=== PATIENT | female | born 1955 | race Caucasian/White ===

== ENCOUNTER → 2019-10-24 11:00 | Outpatient (BNVA) | payer BC, SELFPAY | PROVIDERS: Family Provider General Practice; Referring Provider Family Medicine; Visit Provider Obstetrics & Gynecology | DX: R87.615 Unsatisfactory cytologic smear of cervix (principal); N39.41 Urge incontinence | CPT/HCPCS: 87086 ==

== ENCOUNTER 2020-02-22 06:24 | Day surgery (SDC) | payer BC, SELFPAY ==
[2020-02-21 16:12] VITALS: BMI 51.7
--- NOTE | 2020-02-22 06:42 | W.PM.OPSUD ---
Surgery/Procedure H&P Update DATE OF PROCEDURE: February 22, 2020 DATE H&P PERFORMED: 02/07/20 H&P UPDATE INFORMATION: I have reviewed H&P completed within last 30 days, I have examined patient prior to procedure and No changes to prior documentation CHANGES TO PREVIOUS DOCUMENTATION: The same PREOP DIAGNOSIS: Peptic ulcer disease and screening colonoscopy PLANNED PROCEDURE: Operation Date: 02/22/20 08:05 Proposed Procedures p EGD 82167 Z87.11(Not Applicable) - Nash Carlos MD s Colonoscopy 02654 Z12.11(Not Applicable) - Nash Carlos MD
[2020-02-22] MEDS: sodium chloride 0.9% 1,000 ML 30 ML IV (06:45)
[2020-02-22 06:47] VITALS: BP 149/82; PULSE 65; RESP 18; TEMP 36.1; O2SAT 97
--- NOTE | 2020-02-22 07:20 | ANES.PREANE2 ---
Pre-Anesthetic Assessment Pre-Anesthetic Assessment: Height/Weight: Height 1.52 m Weight 120.202 kg Temp Pulse Resp BP Pulse Ox 97 F L 65 18 149/82 97 02/22/20 06:47 02/22/20 06:47 02/22/20 06:47 02/22/20 06:47 02/22/20 06:47 Preop Diagnosis: Peptic ulcer disease and screening colonoscopy Proposed Procedure: Operation Date: 02/22/20 08:05 Proposed Procedures p EGD 67393 Z87.11(Not Applicable) - Nash Carlos MD s Colonoscopy 80016 Z12.11(Not Applicable) - Nash Carlos MD Familial anesthetic complications: None Was Beta Natalie taken within 24 hours: N/A Last intake: Intake Last Liquid Date 02/21/20 Last Liquid Time 14:00 Last Solid Date 02/20/20 Last Solid Time 18:00 Social: Social History: No alcohol and No tobacco Exam: Pre-Anes Outpt Exam: alert, oriented x 3, clear to auscultation bilaterally and regular rate & rhythm Airway: Cervical ROM: WNL MP: 4 Dentition: Full Additional comments: pulled teeeth Pulmonary: Pulmonary: None reported CV/HEM: CV/HEM: HTN : : None reported Hepatic: Hepatic: None reported GI: GI: GERD and PUD Metabolic: Metabolic: Morbid obesity Musc/skel: Musc/skel: None reported Neuropsych: Neuropsych: None reported Anesthetic Plan: ASA status: 2 Anesthesia: MAC Risk of > 500 ml blood loss (7ml/kg in children): No PFSH Anesthesia PFSH: Medical History Gastric ulcer Hypertension Obesity Surgical History History of cholecystectomy History of esophagogastroduodenoscopy (EGD) History of tubal ligation (~1988) [facility]. Performed by Dr. Ellis Family History Mother Hypertension Diabetes Hyperlipidemia Bladder cancer Sister Hypertension Hyperlipidemia Thyroid condition Breast cancer, Onset Age: 50 Unknown No problems noted. Denies family history of Anesthesia complication Bleeding disorder Social History Smoking and tobacco status: never smoked Alcohol intake: never Lives independently: Yes Household members: spouse Current occupational status: retired History of recent travel: No Additional social history: Poorly balanced diet Data Anesthesia Cardiac Studies: No Data to Display
[2020-02-22 08:34] VITALS: BP 92/51; PULSE 65; RESP 12; TEMP 32.2; O2SAT 96
--- NOTE | 2020-02-22 08:39 | ANE.PACU2 ---
Inpatient post-anesthesia follow up: Airway intact: Yes Vital signs: Temperature 97 F Pulse Rate 65 Respiratory Rate 18 Blood Pressure 149/82 Pulse Oximetry 97 Oxygen Delivery Me thod Room Air Oxygen Flow Rate Fraction of Inspir ed Oxygen Hydration adequate: Yes Nausea and vomiting: No Pain level: 1 Mental status: Baseline
[2020-02-22 08:45] VITALS: BP 87/55; PULSE 52; RESP 16; O2SAT 97
[2020-02-22 09:01] VITALS: BP 98/58; PULSE 56; RESP 16; O2SAT 96
[2020-02-23 07:10] LABS: H. Pylori / CLO Test Negative
== END 2020-02-22 09:15 | disposition home or self-care (01) ==
PROVIDERS: PCP Family Medicine; Visit Provider Surgery
PROC: 0DJ08ZZ Inspection of Upper Intestinal Tract, Via Natural or Artificial Opening Endoscopic (ICD-10-PCS; CPT 43235; principal; 2020-02-22 08:00)
PROC: 0DJD8ZZ Inspection of Lower Intestinal Tract, Via Natural or Artificial Opening Endoscopic (ICD-10-PCS; CPT 45378; 2020-02-22 08:00)
DX: Z12.11 Encounter for screening for malignant neoplasm of colon (principal); Z87.11 Personal history of peptic ulcer disease; D12.8 Benign neoplasm of rectum; K31.89 Other diseases of stomach and duodenum; K29.70 Gastritis, unspecified, without bleeding; I10 Essential (primary) hypertension; K21.9 Gastro-esophageal reflux disease without esophagitis; E66.01 Morbid (severe) obesity due to excess calories; Z68.43 Body mass index [BMI] 50.0-59.9, adult; Z82.49 Family history of ischemic heart disease and other diseases of the circulatory system; Z83.3 Family history of diabetes mellitus
CPT/HCPCS: 43239; 45385; 12345; 45380; 87077; 88305; J2704; J7030

== ENCOUNTER → 2021-12-11 14:10 | Outpatient (BNVA) | payer MEDICARE, SELFPAY | PROVIDERS: PCP Family Medicine; Visit Provider Surgery | DX: E66.01 Morbid (severe) obesity due to excess calories (principal); Z20.822 Contact with and (suspected) exposure to COVID-19 | CPT/HCPCS: 87635 ==

== ENCOUNTER 2021-12-17 10:26 | Inpatient (IN) | payer MEDICARE, SELFPAY ==
[2021-12-13 10:46] VITALS: BMI 47.2
[2021-12-13 11:48] LABS: Basophils # 0.1 10^3/uL (0.0-0.1); Basophils % 0.7 %; Eosinophils # 0.1 10^3/uL (0.0-0.8); Hematocrit 45.2 % (37.0-47.0); Hemoglobin 15.1 g/dL (11.5-15.3); Lymphocytes # 2.3 10^3/uL (0.8-4.8); Lymphocytes % 28.8 %; Mean Corpuscular HGB Conc 33.4 g/dL (30.0-36.0); Mean Corpuscular Hemoglobin 30.8 pg (28.0-34.0); Mean Corpuscular Volume 92.1 fl (81-99); Mean Platelet Volume 11.9 fL (7.4-10.4); Monocytes # 0.6 10^3/uL (0.2-0.9); Monocytes % 7.8 %; Neutrophils # 4.91 10^3/uL (1.8-7.7); Neutrophils % 61.2 %; Nucleated Red Blood Cells % 0 %; Platelet Count 268 10^3/cmm (130-400); Red Blood Count 4.91 10^6/uL (4.1-5.3); Red Cell Distribution Width 13.2 % (12.1-15.1)
[2021-12-13 12:11] LABS: Alanine Aminotransferase 42 U/L (0-33); Albumin Level 4.6 g/dL (3.5-5.2); Alkaline Phosphatase 55 IU/L (35-105); Anion Gap 17.9 (5-19); Aspartate Amino Transferase 29 U/L (0-32); Blood Urea Nitrogen 30 mg/dL (8-23); Calcium 10.6 mg/dL (8.5-10.5); Carbon Dioxide 23 mmol/L (22-29); Chloride 96 mmol/L (98-107); Globulin 3.5 g/dL (1.3-4.6); Glomerular Filtration Rate 49.8 mL/min (90-130); Glucose 104 mg/dL (65-115); Iron 125 ug/dL (37-145); Osmolality Calculated 282 mOsm/kg (285-295); Potassium 3.9 mmol/L (3.5-5.1); Sodium 133 mmol/L (136-145); Total Bilirubin 0.5 mg/dL (0.15-1.2); Total Iron Binding Capacity 250 mcg/dl; Total Protein 8.1 g/dL (6.6-8.7); Unsaturated Iron Binding 125 ug/dL (112-347)
[2021-12-13 12:12] LABS: Calcium 10.9 mg/dL (8.5-10.5)
[2021-12-13 12:29] LABS: Ferritin 1629 ng/mL (15-150)
[2021-12-13 12:36] LABS: Parathyroid Hormone 39.5 pg/mL (15-65)
--- NOTE | 2021-12-13 12:36 | P.ANESASSM_ITS ---
Pre-Anesthetic Assessment Height/Weight: Height 1.52 m Weight 109.769 kg Preop Diagnosis: Peptic ulcer disease and screening colonoscopy Operation Date: 12/17/21 07:00 Proposed Procedures p Laparoscopic Gastric Sleeve w/ EGD e66.01/409888/80800(Not Applicable) - Nash Carlos MD Familial anesthetic complications: None Was Beta Natalie taken within 24 hours: N/A Was Clonidine taken within 24 hours: N/A Social No alcohol and No tobacco Exam alert, oriented x 3, clear to auscultation bilaterally and regular rate & rhythm Airway Submandibular: within normal limits Cervical ROM: within normal limits Mallampati: Class II Dentition: full Comments: Comments: Right facial paralysis (Welsh's palsy) CV/HEM Anemia GI Gastroesophageal Reflux Disease Metabolic Morbid Obesity Anesthetic Plan ASA status: 3 Anesthesia: General Risk of > 500 ml blood loss (7ml/kg in children): No Medications/Allergies Home Medications Medication Instructions Recorded Confirmed Last Taken Type gabapentin 300 mg capsule 400 mg PO BID cap 10/24/19 12/13/21 02/22/20 History lisinopril 5 mg tablet 10 mg PO DAILY tab 10/24/19 12/13/21 02/22/20 History Iron 50 mg PO DAILY 02/07/20 12/13/21 02/22/20 History calcium-vit P0-lsr-vqfryfwmc 500 1 cap PO DAILY cap 02/07/20 12/13/21 02/22/20 History mg-40 mg-200 unit-200 mcg capsule cyanocobalamin (vitamin B-12) 500 1,000 mcg PO DAILY tab 02/07/20 12/13/21 02/22/20 History mcg tablet (B-12 DOTS) diclofenac sodium 1 % topical gel 2 gm TOPICAL BID gm 02/07/20 12/13/21 02/22/20 History (Voltaren) pantoprazole 20 mg tablet,delayed 40 mg PO DAILY tab 02/07/20 12/13/21 02/22/20 History release oxycodone-acetaminophen 5 mg-325 1 tab PO DAILY 12/13/21 12/13/21 Unknown His tory mg tablet Allergies Allergy/AdvReac Type Severity Reaction Status Date / Time No Known Allergies Allergy Verified 12/13/21 10:42 [facility] Anesthesia Medical History Arthritis Colon polyp Gastric ulcer Hypertension Obesity Surgical History History of cholecystectomy History of colonoscopy with polypectomy History of esophagogastroduodenoscopy (EGD) History of tubal ligation (~1988) [facility]. Performed by Dr. Ellis Family History Mother Hypertension Diabetes Hyperlipidemia Bladder cancer Sister Hypertension Hyperlipidemia Thyroid condition Breast cancer, Onset Age: 50 Unknown No problems noted. Denies family history of Anesthesia complication Bleeding disorder Social History Smoking and tobacco status: never smoked Alcohol intake: never Lives independently: Yes Household members: spouse Current occupational status: retired History of recent travel: No Additional social history: Poorly balanced diet Data Anesthesia : 12/13/21 11:30 12/13/21 11:30 Short CBC 12/13/21 Range/Units 11:30 WBC 8.0 (4.0-10.0) 10^3/uL Hgb 15.1 (11.5-15.3) g/dL Hct 45.2 (37.0-47.0) % MCV 92.1 (81-99) fl Plt Count 268 (130-400) 10^3/cmm Neut % (Auto) 61.2 % Neut # (Auto) 4.91 (1.8-7.7) 10^3/uL BMP 12/13/21 11:30 Sodium 133 L Potassium 3.9 Chloride 96 L Carbon Dioxide 23 BUN 30 H Creatinine 1.1 H Glucose 104 Calcium 10.6 H Liver Function 12/13/21 Range/Units 11:30 Total Bilirubin 0.5 (0.15-1.2) mg/dL AST 29 (0-32) U/L ALT 42 H (0-33) U/L Alkaline Phosphatase 55 (35-105) IU/L Albumin 4.6 (3.5-5.2) g/dL Cardiac Studies: No Data to Display
[2021-12-13 12:46] LABS: Folate Level 9.3 ng/mL (4.8-37.3)
[2021-12-13 12:52] LABS: Vitamin B12 > 2000 pg/mL (232-1245)
[2021-12-14 11:21] LABS: Chol HDL Ratio 5.24 mg/dL (0.0-4.40); Cholesterol 262 mg/dL (0-200); HDL Cholesterol 50 mg/dL (60-100); LDL Cholesterol Calculated 181 mg/dL (50-129); LDL HDL Ratio 3.62 RATIO (0.00-3.22); Magnesium 1.9 mg/dL (1.7-2.3); Thyroid Stimulating Hormone 0.76 uIU/mL (0.27-4.20); Triglycerides 154 mg/dL (0-150)
[2021-12-17] VITALS (13 sets, daily range): BP systolic 142–184; BP diastolic 81–99; PULSE 68–94; RESP 11–20; TEMP 36.2–36.8; O2SAT 94–100
[2021-12-17] MEDS: acetaminophen 1,000 MG/100 ML PIGGYBACK 400 MG IV ×2 (06:20→16:52)
[2021-12-17] MEDS: sodium chloride 0.9% 1,000 ML 999 ML IV (06:20)
--- NOTE | 2021-12-17 06:24 | W.PM.OPSUD ---
Surgery/Procedure H&P Update DATE OF PROCEDURE: December 17, 2021 DATE H&P PERFORMED: 12/11/21 CHANGES TO PREVIOUS DOCUMENTATION: Patient lost 14 pounds since she has been on liquid protein diet PREOP DIAGNOSIS: Peptic ulcer disease and screening colonoscopy PRIMARY INDICATION FOR PROCEDURE: The same morbid obesity with associated comorbidities PLANNED PROCEDURE: Operation Date: 12/17/21 07:00 Proposed Procedures p Laparoscopic Gastric Sleeve w/ EGD e66.01/108019/60759(Not Applicable) - Nash Carlos MD
[2021-12-17] MEDS: scopolamine 1.5 Patch 1 PATCH TRANSDERMA ×2 (06:32→11:42)
[2021-12-17] MEDS: heparin 5,000 unit/mL INJ 1 mL 5000 UNIT SUBCUT (06:37)
--- NOTE | 2021-12-17 07:09 | P.ANESUD_ITS ---
Pre-Anesthetic Update Pre-Anesthetic Assessment: Date of Surgery/Procedure: 12/17/21 Preop Stefanie gnosis: Peptic ulcer disease and screening colonoscopy Proposed Procedure: Operation Date: 12/17/21 07:00 Proposed Procedures p Laparoscopic Gastric Sleeve w/ EGD e66.01/[id number]/[id number](Not Applicable) - Nash Carlos MD Any changes to Pre-Anesthetic Assessment?: No Last Intake: Intake Last Liquid Date 12/16/21 Last Liquid Time 21:30 Last Solid Date 12/07/21 Last Solid Time 18:00 Vitals: Temperature 97.1 F L 12/17/21 05:56 Temperature Source Temporal Artery S can 12/17/21 05:56 Pulse Rate 75 12/17/21 05:56 Pulse Rhythm 12/17/21 05:56 Pulse Strength 3+ Normal 12/17/21 05:56 Respiratory Rate 18 12/17/21 05:56 Blood Pressure 184/99 12/17/21 05:56 Blood Pressure Felecia n 127 12/17/21 05:56 Pulse Oximetry 100 12/17/21 05:56 Oxygen Delivery Me thod 12/17/21 05:56 Exam: Pre-Anes Outpt Exam: alert, oriented x 3, clear to auscultation bilaterally and regular rate & rhythm Cardiac Studies: No Data to Display
[2021-12-17] MEDS: sodium chloride 0.9% 1,000 ML 30 ML IV (07:15)
--- NOTE | 2021-12-17 07:57 | SUR.OPER ---
family updated of surgical status
--- NOTE | 2021-12-17 09:10 | SUR.OPER ---
family updated of surgical status
--- NOTE | 2021-12-17 09:41 | PM.OP ---
Operative Report Date of procedure: December 17, 2021 Pre-op diagnosis: Preop Diagnosis morbid obesity Post-op diagnosis: The same Procedure done: Laparoscopic vertical sleeve gastrectomy with intraoperative EGD Specimens removed/disposition: Subtotal gastrectomy with gastric sleeve Surgeon: Nash Carlos MD Videogame Designer: Surgical Wen Davidson and Cuca Circulating nurse Urszula Anesthesia: General (GETA WEIGHT SHIFTER Michelle and WEIGHT SHIFTER lian Randall) Estimated blood loss (mL): 25 IV fluids (mL): 2,000 Urine output: 250 Procedure: Patient was identified in the holding area, appropriate pharmacologic DVT prophylaxis was given and preoperative IV fluid hydration, patient was then taken to the operating room where the patient was placed in supine position, intubated by anesthesia prophylactic antibiotics were given per protocol, Time-out was done verifying the patient's name/date of /planned procedure and destination after the procedure, all were in agreement.SCDs confirmed to be functioning, and beta maxwell protocol was confirmed. A Dowell catheter was inserted by the circulating nurse revealing clear urine. A foot board was applied to secure the patient while the patient is placed in reversed Trendelenburg, all pressure points were padded, and the patient was appropriately secured to the table, anesthesia was asked to rotate the table back and forth to verify that the patient is appropriately secured, and that was the case. The abdomen was prepped and draped under the usual sterile technique. A transverse incision was made with a 15 blade scalpel approximately 15 cm below the xiphoid process and 3 cm left of the midline. A 5 mm optical trocar port was placed under direct vision into the peritoneal cavity without initial evidence of injury to peritoneal structures upon entry. The peritoneal cavity was insufflated with carbon dioxide gas up to 15 mmHg pressure. A 45? angle laparoscopy was placed through the port into the peritoneal cavity there was no significant blood, fluid, or evidence of intra-abdominal injury under direct visualization, Longer trocars were then used; a 12 mm trocar port was placed in the right epigastric region and a fourth 5 mm trocar port was placed in the mid epigastric region more caudad than and medial to the previous port. A 5 mm trocar port was placed in the left lateral flank and additional 5 mm trocar was inserted midway between the left lateral flank trocar and the initial 5 mm trocar. There after the index 5 mm trocar was switched to a 12 mm trocar under direct visualization after extending the skin incision. I lifted the omentum up to make sure there were no injuries encountered from the initial trocar insertion, the underlying transverse colon and small bowel viscera were normal. A subxiphoid stab incision was made and dissection into the peritoneum with 5 mm obturator. A grasping laparoscopic clamp was inserted through here and clamped to the right martinez of the diaphragm to elevate the liver for the entirety of the case. All trocars inserted were long arc trocars due to the thick layer of subcutaneous tissue that the patient has.Patient was then placed in the reversed Trendelenburg. Following this, the greater curvature of the stomach was freed from the omentum using the ENSEAL device. This division included the short gastric vessels proximally. This dissection was carried from approximately 4 cm-6 cm proximal to the pylorus and extending all the way up to the angle of Hiss. During this process the posterior aspect of the stomach was mobilized from the underlying peritoneum and the posterior aspect of the stomach was well exposed. With the greater curvature of the stomach exposed from within 4-6 cm of the pylorus and extending to the angle of Hiss, which also included the posterior stomach, a 40 Lithuanian standard template passed under direct vision down the esophagus, stomach, and into the first part of the duodenum by the anesthesia provider and under direct guidance and visualization by me, via the laparoscopy. Using the template 40 Lithuanian aligned along the lesser curvature of the stomach and all the way to the first part of the Duodenum, the 40 Lithuanian Bougie was used as a template the laparoscopic vertical gastric sleeve was performed starting from a point about 5 cm from the pylorus along the greater curvature. Using the [place] Laparoscopic TARYN linear cutting stapler with Best Response Strategies Endopath enforcement, a series of annabel were used to transect the stomach in a vertical fashion along the left side of the template. Through the entire division of the stomach using the staplers, the template was always checked to be in good place and well aligned to the lesser curvature while dividing the stomach. This was carried all the way to the angle of Hiss. [place] 60 mm Green loads were used for the distal third of the stomach and Gold loads were used for the more proximal part of the stomach and then blue loads with reinforcement and then the last load was a blue load without reinforcement. The staple line along the remaining tubularized stomach was tested for leaks and bleeding under direct vision as the 40 Lithuanian template was exchanged (and there was no evidence of blood on the tip of the template) by a standard diagnostic EGD via the mouth by my me after I scrubbed out, insufflation was achieved using CO2 gas and the staple line submerged under saline, meanwhile a clamp was applied distally onto the end of the tubularized stomach to allow insufflation test for leak. There was no evidence of leak .There was adequate hemostasis along the staple line.the endoscopy taken out at this point after deflation of the tubularized stomach. I scrubbed the back in. The transected partial stomach, which included the greater curvature, was removed from the peritoneum through the first 12 mm trocar site, and was sent for permanent pathology. Prior to closure of the fascia. A final look laparoscopy identified no injuries or bleeding. Except for minor oozing along the staple line and Multiple 5 mm clips were applied. There was some omental adhesions that was taken down towards the lower center part of the abdomen under direct visualization Bilateral TAP (transversus abdominous plain peripheral nerve block) block using Exparel 20 mL Exparel,40 ml Normal saline,20 ml bupivacaine 0.25% 30 mL on each side injected, 20 mL injected the port sites. An interrupted #1 PDS suture on a granny needle suture passer was used to close the right epigastric and the other 12 mm trocar left of the midline fascial defects under direct visualization. The other trocars were removed under direct vision and no evidence of bleeding was identified. The pneumoperitoneum was decompressed. All skin incisions were irrigated with saline, then closed with annabel, followed by application of sterile dressings. The patient was extubated and taken to the recovery room with normal vital signs. Dowell catheter was maintained All counts of instruments, sponges and needles were completed at the end of the procedure I was present for the whole entire procedure
[2021-12-17] MEDS: fentaNYL 50 mcg/mL INJ 2mL IVP (10:14)
[2021-12-17 11:17] LABS: Glucose Point of Care 108 mg/dL (70-110)
[2021-12-17] MEDS: ondansetron 2 mg/ML SDV 2 mL 4 MG IVP ×2 (11:39→20:07)
[2021-12-17] MEDS: lactated ringers 1,000 ML 125 ML IV ×2 (11:43→20:06)
[2021-12-17 11:46] LABS: Vit D 1,25 (Oh)2, Total 37 pg/mL (18-72); Vit D2 1,25 (Oh)2 <8 pg/mL; Vit D3 1,25 (Oh)2 37 pg/mL
--- NOTE | 2021-12-17 15:30 | ANE.PACU2 ---
Inpatient post-anesthesia follow up: Airway intact: Yes Vital signs: Temperature 98.2 F Pulse Rate 75 Respiratory Rate 18 Blood Pressure 142/83 Pulse Oximetry 94 Oxygen Delivery Me thod Room Air Oxygen Flow Rate Fraction of Inspir ed Oxygen Hydration adequate: Yes Nausea and vomiting: No Pain level: 3 Mental status: Baseline
[2021-12-17 16:57] LABS: Glucose Point of Care 121 mg/dL (70-110)
[2021-12-17] MEDS: lanolin oint 7 gm 1 APPLIC TOPICAL (20:06)
[2021-12-17] MEDS: HYDROmorphone 1 mg/mL INJ 1 mL IVP (20:07)
[2021-12-17] MEDS: famotidine 20 mg/2 mL INJ IVP (20:07)
[2021-12-17 21:12] LABS: Zinc Level, Serum or Plasma 90 mcg/dL (60-130)
[2021-12-18] VITALS (7 sets, daily range): BP systolic 132–148; BP diastolic 81–88; PULSE 71–94; RESP 17–18; TEMP 36.3–36.9; O2SAT 92–97
[2021-12-18 02:55] LABS: Hematocrit 40.2 % (37.0-47.0); Hemoglobin 12.9 g/dL (11.5-15.3)
[2021-12-18 03:15] LABS: Anion Gap 16.7 (5-19); Blood Urea Nitrogen 11 mg/dL (8-23); Carbon Dioxide 22 mmol/L (22-29); Chloride 102 mmol/L (98-107); Glomerular Filtration Rate 62.8 mL/min (90-130); Glucose 105 mg/dL (65-115); Osmolality Calculated 280 mOsm/kg (285-295); Potassium 5.7 mmol/L (3.5-5.1); Sodium 135 mmol/L (136-145)
[2021-12-18] MEDS: lactated ringers 1,000 ML 125 ML IV (04:24)
[2021-12-18] MEDS: HYDROmorphone 1 mg/mL INJ 1 mL IVP ×2 (04:25→10:41)
[2021-12-18] MEDS: ondansetron 2 mg/ML SDV 2 mL 4 MG IVP ×2 (04:26→10:42)
[2021-12-18] MEDS: heparin 5,000 unit/mL INJ 1 mL 5000 UNIT SUBCUT ×2 (05:31→13:54)
--- NOTE | 2021-12-18 06:57 | PC.NURSE ---
Dr. Mcmullen at bedside.
--- NOTE | 2021-12-18 07:35 | P.PN_ITS ---
Subjective Subjective: Patient was seen and examined and seems to be doing well and no acute events overnight. Continues to have stable vital signs and adequate urine output. Labs are reviewed Medications: Reviewed: Yes Vitals/I&O/Wt Last Vital Signs Temp 97.6 F 12/18/21 04:00 Pulse 71 12/18/21 04:00 Resp 18 12/18/21 04:25 BP 132/83 12/18/21 04:00 Pulse Ox 97 12/18/21 04:25 12/17/21 12/18/21 12/18/21 22:59 06:59 14:59 Intake Total 1100 / 4460 1000 / 5460 Output Total 1800 / 2075 Balance 1100 / 4185 -800 / 3385 Weight last 48 hrs Weight 238 lb Physical Exam Narrative: Patient is conscious alert oriented X3 No apparent distress BMI 46.5 Head and neck examination PERRLA no masses no cervical lymphadenopathy no jaundice Cardiac examination audible S1-S2 no murmurs no gallops no arrhythmias Chest is clear bilateral,abscence of Rhonchi or wheezes,no surgical emphysema Abdomen nontender except mildly at the incision sites nondistended soft no organomegaly guarding or rigidity/no signs of peritonitis Dowell catheter in place with clear urine Extremities no cyanosis no clubbing no edema Urinary Catheter Management: Dowell Latex: Cath Placed During This Visit: yes Reason for Continuing Indwelling Catheter: Required Immobilization for Trauma or Surgery or Anesthesia Urinary Catheter Date of Insertion: 12/17/21 Urinary Catheter Time of Insertion: 07:25 Data : 12/18/21 02:34 12/18/21 02:34 A&P Assessment and plan (1) Status post laparoscopic sleeve gastrectomy: Assessment Status post laparoscopic sleeve gastrectomy 12/17/2021 Plan Encourage ambulation DC Dowell catheter We will switch to LR to normal saline due to high potassium level and LR and patient's potassium today was 5.7 Incentive spirometer every hour We will follow an upper GI study once this is cleared we will start the patient on post bariatric phase 1 diet Assurance and education All questions have been answered and all concerns have been addressed to patient's satisfaction. Status: Acute Attestations Medical Necessity Statement*: Patient requiring inpatient hospitalization for perioperative care make sure that she is able to tolerate p.o. intake. Coding Level of Care Code Acute Shipping And Receiving Coordinator for Chg Fwd Diagnoses Status post laparoscopic sleeve gastrectomy Z98.84
[2021-12-18] MEDS: famotidine 20 mg/2 mL INJ IVP (07:51)
--- NOTE | 2021-12-18 08:00 | FL_ITS ---
WS: [id number] Upper GI with Gastrografin, 12/18/2021 Clinical Data: Status Post Gastric Sleeve Comparison: None. Fluoroscopy time: 0.4 minutes. Findings: The patient swallowed the Gastrografin flowed normally through the hypopharynx into the esophagus. Th e esophagus showed mild dilatation and a small hiatal hernia. The Gastrografin flowed into the stomac h which was reduced from the gastric sleeve surgery. There are clips adjacent to the fundus and body of the stomach from the surgical procedure. No extravasation or obstruction was seen. The duodenal bu lb filled without ulceration. The proximal duodenum was unremarkable. There are clips in the right up per quadrant from a cholecystectomy. [place] upper GI series 71548 Impression: 1. Satisfactory gastric sleeve surgery with reduction of the stomach volume. 2. Negative for obstruction or extravasation. 3. Small hiatal hernia.
--- NOTE | 2021-12-18 08:15 | PC.NURSE ---
Patient catheter removed at this time. Patient up in room and ambulated [address] in hallway at this time without problems. Patient states she has a little bit of stomach pain but nothing that needs medications. No n/v noted. Patient up at sink in room at this time to brush teeth.
[2021-12-18] MEDS: diatrizoate meglumine 30 mL Sol PO ×2 (08:52→08:54)
[2021-12-18] MEDS: sodium chloride 0.9% 1,000 ML 100 ML IV (09:19)
--- NOTE | 2021-12-18 10:16 | PC.CHAP ---
Pastoral Care Encounter/Spiritual Assessment Type of Contact [] Declined assembler fitter visit [] Patient/Family/Request visit [] Outpatient visit [] Follow-up visit [] Physician referral [] Code/Alert [x] Routine visit [] Staff referral [] Actively dying [] Patient sleeping [] Family support [] [] Out of room [] Palliative care [] [] Receiving care in room [] Pre-surgical visit [] Trauma [] Long length of stay [] ICU visit [] Other: Relational/Emotional Strength [x] Patient feels connected with others/family/visitors/staff [] Distress [] Loneliness/isolation [] Abandonment Spirituality of Patient [x] Person of Rachel [] Attends Mormonism of their Rachel [x] Believes in Prayer [] Reads Bible or Bahai materials [x] There are Spiritual issues to be addressed Ecclesiastical Worker Interventions [x] Prayer []x Active listening []x Non-anxious presence [x] Spiritual/emotional support [] Crisis/trauma care [] Spiritual counseling [] Bereavement support [] Provided bereavement packet [] Provided Bible/devotional materials [] Provided toy/stuffed animal, coloring book to patient or family member [] Provided Communion [] Anointing/Blair [x] Salvation [] Completed spiritual assessment [] Other: Impact on Illness or Injury [] Angry [] Fearful [] Anxious [] Often cries [] Exhaustion [] Unable to work [] Unable to attend tenriism [] Unable to walk/stand [] Unable to read [] Unable to drive [] Unable to eat/drink [] Unable to sleep [] Unable to be with family [] Patient intubated [] Other: Summary Time spent with patient 10 min
[2021-12-18 11:01] LABS: Glucose Point of Care 81 mg/dL (70-110)
[2021-12-18 13:26] LABS: Vitamin B1(Thiamin) Plas/Ser 18 nmol/L (8-30)
--- NOTE | 2021-12-18 16:40 | P.DS_ITS ---
Discharge Providers Date of Admission: 12/17/21 10:26 Date of Discharge: December 18, 2021 Attending Provider at Admission: Nash Carlos MD Attending Provider at Discharge: Nash Carlos MD Primary Care Provider: Guy Angulo Diagnoses at Discharge Discharge Diagnosis (1) Status post laparoscopic sleeve gastrectomy: Details from hospital stay: Condition resolved and patient met the appropriate criteria to discharge home Status: Resolved Reason for Visit Reason for Visit: morbid obesity Brief History: This is a pleasant 66 years old female patient morbidly obese met the appropriate indication and based on medical necessity to proceed with laparoscopic vertical sleeve gastrectomy. Hospital Course Hospital Course Patient met the appropriate and safe criteria to be discharged home today, able to tolerate p.o. and her pain is under control using oral pain medications. Adequate urine output. Able to ambulate without assistance. Nausea is under control. Able to void after catheter is taken out. Upper GI study was done on postoperative day 1 and showed active findings after sleeve gastrectomy; 1. Satisfactory gastric sleeve surgery with reduction of the stomach volume. 2. Negative for obstruction or extravasation. Physical Exam Narrative: Patient is conscious alert oriented X3 No apparent distress BMI 46.5 Head and neck examination PERRLA no masses no cervical lymphadenopathy no jaundice Abdomen nontender except mildly at the incision site nondistended soft no organomegaly guarding or rigidity/no signs of peritonitis Extremities no cyanosis no clubbing no edema Urinary Catheter Management: Dowell Latex: Cath Placed During This Visit: yes Reason for Continuing Indwelling Catheter: Required Immobilization for Trauma or Surgery or Anesthesia Urinary Catheter Date of Insertion: 12/17/21 Urinary Catheter Time of Insertion: 07:25 Discharge Data Studies Completed and Pending Completed Studies During Hospitalization Category Date Time Status FL upper GI series [id number] Routine Exams 12/18/21 08:00 Completed Pending at discharge Category Date Time Status ES surgery / GI images Routine Exams 12/17/21 06:45 Taken Basic Metabolic Panel AM LABS Lab 12/19/21 04:00 Ordered Basic Metabolic Panel AM LABS Lab 12/20/21 04:00 Ordered Hemoglobin and Hematocrit AM LABS Lab 12/19/21 04:00 Ordered Hemoglobin and Hematocrit AM LABS Lab 12/20/21 04:00 Ordered Pathology: Surgical [PTH] Routine Pth 12/17/21 09:45 Received Radiology Impressions Upper GI Series 12/18/21 08:00 Impression: 1. Satisfactory gastric sleeve surgery with reduction of the stomach volume. 2. Negative for obstruction or extravasation. 3. Small hiatal hernia. Laboratory Results WBC 8.0 10^3/uL (4.0-10.0) 12/13/21 11:30 RBC 4.91 10^6/uL (4.1-5.3) 12/13/21 11:30 Hgb 12.9 g/dL (11.5-15.3) 12/18/21 02:34 Hct 40.2 % (37.0-47.0) 12/18/21 02:34 MCV 92.1 fl (81-99) 12/13/21 11:30 MCH 30.8 pg (28.0-34.0) 12/13/21 11:30 MCHC 33.4 g/dL (30.0-36.0) 12/13/21 11:30 RDW 13.2 % (12.1-15.1) 12/13/21 11:30 Plt Count 268 10^3/cmm (130-400) 12/13/21 11:30 MPV 11.9 fL (7.4-10.4) H 12/13/21 11:30 Neut % (Auto) 61.2 % 12/13/21 11:30 Lymph % (Auto) 28.8 % 12/13/21 11:30 Rock % (Auto) 7.8 % 12/13/21 11:30 Eos % (Auto) 1.0 % 12/13/21 11:30 Baso % (Auto) 0.7 % 12/13/21 11:30 Neut # (Auto) 4.91 10^3/uL (1.8-7.7) 12/13/21 11:30 Lymph # (Auto) 2.3 10^3/uL (0.8-4.8) 12/13/21 11:30 Rock # (Auto) 0.6 10^3/uL (0.2-0.9) 12/13/21 11:30 Eos # (Auto) 0.1 10^3/uL (0.0-0.8) 12/13/21 11:30 Baso # (Auto) 0.1 10^3/uL (0.0-0.1) 12/13/21 11:30 Nucleated RBC % (auto) 0 % 12/13/21 11:30 Nucleated RBCs # 0.0 /100WBC 12/13/21 11:30 Sodium 135 mmol/L (136-145) L 12/18/21 02:34 Potassium 5.7 mmol/L (3.5-5.1) H 12/18/21 02:34 Chloride 102 mmol/L (98-107) 12/18/21 02:34 Carbon Dioxide 22 mmol/L (22-29) 12/18/21 02:34 Anion Gap 16.7 (5-19) 12/18/21 02:34 BUN 11 mg/dL (8-23) 12/18/21 02:34 Creatinine 0.9 mg/dL (0.5-0.9) 12/18/21 02:34 GFR Calculation 62.8 mL/min (90-130) L 12/18/21 02:34 Glucose 105 mg/dL (65-115) 12/18/21 02:34 POC Glucose 81 mg/dL (70-110) 12/18/21 10:45 Calculated Osmolality 280 mOsm/kg (285-295) L 12/18/21 02:34 Calcium 9.0 mg/dL (8.5-10.5) 12/18/21 02:34 Magnesium 1.9 mg/dL (1.7-2.3) 12/13/21 11:30 Iron 125 ug/dL (37-145) 12/13/21 11:30 TIBC 250 mcg/dl 12/13/21 11:30 % Saturation 50.0 % (20-50) 12/13/21 11:30 Unsat Iron Binding 125 ug/dL (112-347) 12/13/21 11:30 Ferritin 1629 ng/mL (15-150) H 12/13/21 11:30 Total Bilirubin 0.5 mg/dL (0.15-1.2) 12/13/21 11:30 AST 29 U/L (0-32) 12/13/21 11:30 ALT 42 U/L (0-33) H 12/13/21 11:30 Alkaline Phosphatase 55 IU/L (35-105) 12/13/21 11:30 Total Protein 8.1 g/dL (6.6-8.7) 12/13/21 11:30 Albumin 4.6 g/dL (3.5-5.2) 12/13/21 11:30 Globulin 3.5 g/dL (1.3-4.6) 12/13/21 11:30 Triglycerides 154 mg/dL (0-150) H 12/13/21 11:30 Cholesterol 262 mg/dL (0-200) H 12/13/21 11:30 LDL Cholesterol, Calc 181 mg/dL (50-129) H 12/13/21 11:30 HDL Cholesterol 50 mg/dL (60-100) L 12/13/21 11:30 LDL/HDL Ratio 3.62 RATIO (0.00-3.22) H 12/13/21 11:30 Cholesterol/HDL Ratio 5.24 mg/dL (0.0-4.40) H 12/13/21 11:30 Vitamin B1 18 nmol/L (8-30) 12/13/21 11:30 Vitamin B12 > 2000 pg/mL (232-1245) H 12/13/21 11:30 25-OH Vitamin D Total 37 pg/mL (18-72) 12/13/21 11:30 1,25 Dihydroxy Vit D2 <8 pg/mL 12/13/21 11:30 1,25 Dihydroxy Vit D3 37 pg/mL 12/13/21 11:30 Folate 9.3 ng/mL (4.8-37.3) 12/13/21 11:30 TSH 0.76 uIU/mL (0.27-4.20) 12/13/21 11:30 PTH Intact 39.5 pg/mL (15-65) 12/13/21 11:30 Calcium (PTH Intact) 10.9 mg/dL (8.5-10.5) H 12/13/21 11:30 Zinc 90 mcg/dL (60-130) 12/13/21 11:30 Procedures Performed Laparoscopic vertical sleeve gastrectomy with intraoperative EGD Specimens removed/disposition: Subtotal gastrectomy with gastric sleeve Surgeon: Nash Carlos MD Cook Frozen Dessert: Surgical techWen Boudreaux and Cuca Circulating nurse Urszula Anesthesia: General (GETA NEIDA Martinez and SHODER FILLER lian Randall) Estimated blood loss (mL): 25 IV fluids (mL): 2,000 Urine output: 250 Procedure: Patient was identified in the holding area, appropriate pharmacologic DVT prophylaxis was given and preoperative IV fluid hydration, patient was then taken to the operating room where the patient was placed in supine position, intubated by anesthesia prophylactic antibiotics were given per protocol, Time- out was done verifying the patient's name/date of /planned procedure and destination after the procedure, all were in agreement.SCDs confirmed to be functioning, and beta maxwell protocol was confirmed. A Dowell catheter was inserted by the circulating nurse revealing clear urine. A foot board was applied to secure the patient while the patient is placed in reversed Trendelenburg, all pressure points were padded, and the patient was appropriately secured to the table, anesthesia was asked to rotate the table back and forth to verify that the patient is appropriately secured, and that was the case. The abdomen was prepped and draped under the usual sterile technique.? A transverse incision was made with a 15 blade scalpel approximately 15 cm below the xiphoid process and 3 cm left of the midline. A 5 mm optical trocar port was placed under direct vision into the peritoneal cavity without initial evidence of injury to peritoneal structures upon entry. The peritoneal cavity was insufflated with carbon dioxide gas up to 15 mmHg pressure. A 45? angle laparoscopy was placed through the port into the peritoneal cavity there was no significant blood, fluid, or evidence of intra- abdominal injury under direct visualization, Longer trocars were then used; a 12 mm trocar port was placed in the right epigastric region and a fourth 5 mm trocar port was placed in the mid epigastric region more caudad than and medial to the previous port. A 5 mm trocar port was placed in the left lateral flank and additional 5 mm trocar was inserted midway between the left lateral flank trocar and the initial 5 mm trocar.? There after the index 5 mm trocar was switched to a 12 mm trocar under direct visualization after extending the skin incision. I lifted the omentum up to make sure there were no injuries encountered from the initial trocar insertion, the underlying transverse colon and small bowel viscera were normal. A subxiphoid stab incision was made and dissection into the peritoneum with 5 mm obturator.? A grasping laparoscopic clamp was inserted through here and clamped to the right martinez of the diaphragm to elevate the liver for the entirety of the case.? All trocars inserted were long arc trocars due to the thick layer of subcutaneous tissue that the patient has.Patient was then placed in the reversed Trendelenburg. Following this, the greater curvature of the stomach was freed from the omentum using the ENSEAL device.? This division included the short gastric vessels proximally.? This dissection was carried from approximately 4 cm-6 cm proximal to the pylorus and extending all the way up to the angle of Hiss. During this process the posterior aspect of the stomach was mobilized from the underlying peritoneum and the posterior aspect of the stomach was well exposed. With the greater curvature of the stomach exposed from within 4-6 cm of the pylorus and extending to the angle of Hiss, which also included the posterior stomach, a 40 Mongolian standard template passed under direct vision down the esophagus, stomach, and into the first part of the duodenum by the anesthesia provider and under direct guidance and visualization by me, via the laparoscopy. Using the template 40 Mongolian aligned along the lesser curvature of the stomach and all the way to the first part of the Duodenum, the 40 Mongolian Bougie was used as a template the laparoscopic vertical gastric sleeve was performed starting from a point about 5 cm from the pylorus along the greater curvature. Using the DotNet[employer] Laparoscopic TARYN linear cutting stapler with [employer] Endopath enforcement, a series of annabel were used to transect the stomach in a vertical fashion along the left side of the template. Through the entire division of the stomach using the staplers, the template was always checked to be in good place and well aligned to the lesser curvature wh ile dividing the stomach. This was carried all the way to the angle of Hiss. Lyndon 60 mm Green loads were used for the distal third of the stomach and Gold loads were used for the more proximal part of the stomach and then blue loads with reinforcement and then the last load was a blue load without reinforcement. The staple line along the remaining tubularized stomach was tested for leaks and bleeding under direct vision as the 40 Mongolian template was exchanged (and there was no evidence of blood on the tip of the template) by a standard diagnostic EGD via the mouth by my me after I scrubbed out, insufflation was achieved using CO2 gas and the staple line submerged under saline, meanwhile a clamp was applied distally onto the end of the tubularized stomach to allow insufflation test for leak. There was no evidence of leak .There was adequate hemostasis along the staple line.the endoscopy? taken out at this point after deflation of the tubularized stomach. I scrubbed the back in. The transected partial stomach, which included the greater curvature, was removed from the peritoneum through the first 12 mm trocar site, and was sent for permanent pathology. Prior to closure of the fascia.? A final look laparoscopy identified no injuries or bleeding.? Except for minor oozing along the staple line and Multiple 5 mm clips were applied. There was some omental adhesions that was taken down towards the lower center part of the abdomen under direct visualization Bilateral TAP (transversus abdominous plain peripheral nerve block) block using Exparel 20 mL Exparel,40 ml Normal saline,20 ml bupivacaine 0.25% 30 mL on each side injected, 20 mL injected the port sites. An interrupted #1 PDS suture on a granny needle suture passer was used to close the right epigastric and the other 12 mm trocar left of the midline fascial defects under direct visualization. The other trocars were removed under direct vision and no evidence of bleeding was identified. The pneumoperitoneum was decompressed. All skin incisions were irrigated with saline, then closed with annabel, followed by application of sterile dressings. The patient was extubated and taken to the recovery room with normal vital signs. Dowell catheter was maintained All counts of instruments, sponges and needles were completed at the end of the procedure I was present for the whole entire procedure Vitals Last Vital Signs Temp 98.4 F 12/18/21 10:48 Pulse 81 12/18/21 10:48 Resp 18 12/18/21 10:48 BP 148/84 12/18/21 10:48 Pulse Ox 92 12/18/21 10:48 Discharge Plan Discharge Patient Disposition: Home Condition: Stable Prescriptions: New hydrocodone-acetaminophen 5-325 mg tablet 1 tab PO Q6H PRN (Reason: pain) Qty: 28 0RF Zofran 4 mg tablet 4 mg PO Q6H PRN (Reason: nausea and vomiting) Qty: 30 2RF scopolamine base 1 mg over 3 days patch 3 day 1 patch transdermal Q3D PRN (Reason: nausea and vomiting) Qty: 4 1RF Continued lisinopril 5 mg tablet 10 mg PO DAILY 0RF Label Comments: Patient not sure of dose gabapentin 300 mg capsule 400 mg PO BID 0RF Label Comments: Patient not sure of dose pantoprazole 20 mg tablet,delayed release (DR/EC) 40 mg PO DAILY 0RF cyanocobalamin (vitamin B-12) [B-12 DOTS] 500 mcg tablet 1,000 mcg PO DAILY 0RF calcium-vit Y8-pco-iakizbwzj [id number] xb-nm-qhyt-mcg capsule 1 cap PO DAILY 0RF diclofenac sodium [Voltaren] 1 % gel 2 gm TOPICAL BID 0RF oxycodone-acetaminophen 5-325 mg tablet 1 tab PO DAILY 0RF Discontinued Iron 50 mg tablet 50 mg PO DAILY 0RF Discharge Orders: Discharge Order (Routine); Ordered 12/18/21 Ordered By: Nash Carlos Referrals: Nash Carlos MD [Physician] - (Return to bariatric surgery office in 1 week.PLEASE CALL FOR APPOINTMENT) Discharge Diet: As Directed Discharge Activity: Increase activity as tolerated Patient Instructions: Scopolamine (Absorbed through the skin), Hydrocodone/Acetaminophen (By mouth), Ondansetron (By mouth), Opioid Safety Activity Restrictions/Additional Instructions: Post discharge instructions: 1. Patient can shower after 48 hours from surgery. Do not soak in bathtub, swimming pool or hot tub for 4 weeks after surgery. 2. Leave incisions open to air, do not apply triple antibiotic ointment or medications on the incisions. 3. Up and walking as tolerated Activity 4. Do not lift more than 5 pounds first 2 weeks after surgery and not more than 25 pounds 6 to 8 weeks after surgery. Driving 5. Do not operate heavy machinery or drive while using pain medications Diet Stage 1 When do I start this stage? The day after your surgery (Day 1). You will get to start this stage after you pass the upper GI study and/or methylene blue test. How long will I be on this stage? Day 1 thru day 2 or until you are discharged from the hospital. Goals: ? Drink 4 to 6 ounces of fluid per hour. ? Aim for a total of 64 ounces of fluid daily. Add the following food/beverages to your diet: Clear broth or bouillon 100% no sugar added apple, cranberry, or grape juice. Dilute with 1 part juice and 1 part water. No citrus justice (i.e. organe juice, grapefruit juice, etc.) Limit to 8 ounces per or less per day. Tea (do not add milk) Coffee (do not add milk or creamer) Sugar-free gelatin Sugar-free popsicles Sugar-free flavored beverages (Crystal Light?, Sugar-Free Bob-Aid?, Propel?, PowerAde Zero?, Vitamin Water 10?, Fruit?0?, Sob? Lean?, etc.) Artificial sweetener of your choice Stage 2 When do I start this stage? Day 3 (or once you are discharged from the hospital) How long will I be on this stage? Day 3 thru Day 13 Goals: ? Drink 4 to 6 ounces of fluid per hour. ? Aim for a total of 64 ounces of fluid daily. ? Aim to meet protein goals with liquid protein supplements Add the following food/beverages to your diet: Protein supplements (thin, water-based supplement may be easier to digest at first while milk-based supplements may feel ``heavy?? and uncomfortable at first) Milk: 1%, skim, light soy milk, or lactose-free milk Pain control Patient was given a prescription for hydrocodone. Exercise caution as patient has already been on oxycodone and please educate the patient to avoid excess Tylenol. Nausea Nausea is common after bariatric surgery, take nausea medications as needed and stay on a liquid bland diet until nausea resolves. Breathing Patient was encouraged and was given incentive spirometer to use at home 10 times an hour while awake Call the office at [phone] during office hours or go the Emergency Room after hours for - ?Fever to 100.4 or greater Discharge Attestations Time Spent in Discharge Care*: greater than 30 min Status at Discharge: Cognitive status at discharge: cognitively intact , Behavioral status at discharge: cooperative , Functional status at discharge: independent ambulation , Overall status at discharge: patient is progressing back to baseline Quality Metrics Clinical Quality Measures [ No reported AMI, CVA or VTE this stay] Coding Level of Care Code Acute Chg FW DC note Diagnoses Status post laparoscopic sleeve gastrectomy Z98.84
[2021-12-18 17:25] LABS: Glucose Point of Care 86 mg/dL (70-110)
== END 2021-12-18 18:16 | disposition home or self-care (01) | DRG 621 ==
LOC: MEDSURG 10:33
PROVIDERS: Admitting Provider Surgery; PCP Family Medicine; Visit Provider Surgery
PROC: 0DB64Z3 Excision of Stomach, Percutaneous Endoscopic Approach, Vertical (ICD-10-PCS; CPT 43775; principal; 2021-12-17 07:00)
PROC: 0DJ08ZZ Inspection of Upper Intestinal Tract, Via Natural or Artificial Opening Endoscopic (ICD-10-PCS; CPT 43235; 2021-12-17 07:00)
DX: E66.01 Morbid (severe) obesity due to excess calories (principal); Z68.42 Body mass index [BMI] 45.0-49.9, adult; Z87.11 Personal history of peptic ulcer disease; M17.0 Bilateral primary osteoarthritis of knee; G89.29 Other chronic pain; M54.9 Dorsalgia, unspecified; I10 Essential (primary) hypertension; K44.9 Diaphragmatic hernia without obstruction or gangrene; Z79.891 Long term (current) use of opiate analgesic
CPT/HCPCS: 36415; 36416; 51702; 74240; 80048; 80053; 80061; 82310; 82607; 82652; 82728; 82746; 82962; 83540; 83550; 83735; 83970; 84425; 84443; 84630; 85014; 85018; 85025; 88309; 96372; C9290; J0330; J0690; J1100; J1170; J1644; J2250; J2370; J2405; J2704; J2710; J3010; J3490; J7030; Q9963

== ENCOUNTER → 2022-01-30 13:56 | Outpatient (BNVA) | payer MEDICARE, SELFPAY | PROVIDERS: PCP Family Medicine; Visit Provider Surgery | DX: Z98.84 Bariatric surgery status (principal) ==

== ENCOUNTER → 2022-03-12 11:41 | Outpatient (BNVA) | payer MEDICARE, SELFPAY | PROVIDERS: PCP Family Medicine; Visit Provider Surgery | DX: Z98.84 Bariatric surgery status (principal) | CPT/HCPCS: 99024 ==

== ENCOUNTER 2022-04-02 14:14 | Outpatient (CLI) | payer MEDICARE, SELFPAY ==
--- NOTE | 2022-04-02 14:26 | MM_ITS ---
WS: [id number] BILATERAL 3D TOMOSYNTHESIS DIGITAL SCREENING MAMMOGRAPHY WITH CAD CLINICAL INFORMATION: SCREEN HISTORY: Screening mammogram. No current complaints. COMPARISON: 11 20,019 and 3 14,018 TECHNIQUE: Bilateral CC and MLO views. FINDINGS: Scattered fibroglandular densities bilaterally. A few incidental punctate calcifications. No suspicio us focal mass, asymmetry, calcifications, or architectural distortion. No evidence of malignancy. MM/[place] [id number] IMPRESSION: BI-RADS: 2-Benign FOLLOW UP: 1 Year Follow-up Recommend return to annual screening mammography.
[2022-04-02 14:53] LABS: Hematocrit 37.9 % (37.0-47.0); Hemoglobin 12.5 g/dL (11.5-15.3)
[2022-04-02 14:54] LABS: Basophils % 0.8 %; Eosinophils # 0.3 10^3/uL (0.0-0.8); Eosinophils % 5.4 %; Hematocrit 36.7 % (37.0-47.0); Hemoglobin 12.2 g/dL (11.5-15.3); Lymphocytes # 1.6 10^3/uL (0.8-4.8); Lymphocytes % 30.6 %; Mean Corpuscular HGB Conc 33.2 g/dL (30.0-36.0); Mean Corpuscular Hemoglobin 31.3 pg (28.0-34.0); Mean Corpuscular Volume 94.1 fl (81-99); Mean Platelet Volume 11.7 fL (7.4-10.4); Monocytes # 0.5 10^3/uL (0.2-0.9); Monocytes % 9.9 %; Neutrophils # 2.78 10^3/uL (1.8-7.7); Neutrophils % 53.1 %; Nucleated Red Blood Cells % 0 %; Platelet Count 244 10^3/cmm (130-400); White Blood Count 5.2 10^3/uL (4.0-10.0)
[2022-04-02 15:28] LABS: Alanine Aminotransferase 12 U/L (0-33); Albumin Level 3.9 g/dL (3.5-5.2); Alkaline Phosphatase 50 IU/L (35-105); Anion Gap 13.1 (5-19); Aspartate Amino Transferase 17 U/L (0-32); Blood Urea Nitrogen 17 mg/dL (8-23); Calcium 9.4 mg/dL (8.5-10.5); Carbon Dioxide 25 mmol/L (22-29); Chloride 102 mmol/L (98-107); Chol HDL Ratio 6.27 mg/dL (0.0-4.40); Cholesterol 276 mg/dL (0-200); Globulin 3.1 g/dL (1.3-4.6); Glomerular Filtration Rate 62.8 mL/min (90-130); Glucose 103 mg/dL (65-115); HDL Cholesterol 44 mg/dL (60-100); LDL Cholesterol Calculated 191 mg/dL (50-129); LDL HDL Ratio 4.34 RATIO (0.00-3.22); Magnesium 1.8 mg/dL (1.7-2.3); Osmolality Calculated 284 mOsm/kg (285-295); Potassium 4.1 mmol/L (3.5-5.1); Sodium 136 mmol/L (136-145); Thyroid Stimulating Hormone 0.39 uIU/mL (0.27-4.20); Total Bilirubin 0.4 mg/dL (0.15-1.2); Triglycerides 204 mg/dL (0-150)
[2022-04-02 15:51] LABS: Calcium 9.9 mg/dL (8.5-10.5)
[2022-04-02 15:58] LABS: Parathyroid Hormone 27.8 pg/mL (15-65)
[2022-04-02 16:08] LABS: Folate Level 16.1 ng/mL (4.8-37.3)
[2022-04-02 18:37] LABS: Iron 105 ug/dL (37-145); Percent Saturation 54.9 % (20-50); Total Iron Binding Capacity 191 mcg/dl; Unsaturated Iron Binding 86 ug/dL (112-347)
[2022-04-02 18:53] LABS: Vitamin B12 1916 pg/mL (232-1245)
[2022-04-02 19:02] LABS: Ferritin 1734 ng/mL (15-150)
[2022-04-04 15:38] LABS: Zinc Level, Serum or Plasma 76 mcg/dL (60-130)
[2022-04-06 12:19] LABS: Vit D 1,25 (Oh)2, Total 27 pg/mL (18-72); Vit D2 1,25 (Oh)2 <8 pg/mL; Vit D3 1,25 (Oh)2 27 pg/mL
[2022-04-07 01:08] LABS: Vitamin B1(Thiamin) Plas/Ser 24 nmol/L (8-30)
== END 2022-04-02 14:15 | disposition home or self-care (01) ==
LOC: RAD 14:16
PROVIDERS: Surgery; PCP Family Medicine; Visit Provider Family Medicine
DX: E88.81 Metabolic syndrome and other insulin resistance (principal); Z12.31 Encounter for screening mammogram for malignant neoplasm of breast
CPT/HCPCS: 77063; 77067; 80053; 80061; 82310; 82607; 82652; 82728; 82746; 83540; 83550; 83735; 83970; 84425; 84443; 84630; 85014; 85018; 85025

== ENCOUNTER → 2022-04-16 11:00 | Outpatient (BNVA) | payer MEDICARE, SELFPAY | PROVIDERS: PCP Family Medicine; Visit Provider Surgery | DX: Z98.84 Bariatric surgery status (principal) | CPT/HCPCS: 99213 ==

== ENCOUNTER → 2022-06-11 10:34 | Outpatient (BNVA) | payer MEDICARE, SELFPAY | PROVIDERS: PCP Family Medicine; Visit Provider Surgery | DX: Z98.84 Bariatric surgery status (principal) | CPT/HCPCS: 99213 ==

== ENCOUNTER → 2023-03-25 08:56 | Outpatient (BNVA) | payer MEDICARE, SELFPAY | PROVIDERS: PCP Family Medicine; Referring Provider Family Medicine; Visit Provider Specialist | DX: M17.0 Bilateral primary osteoarthritis of knee (principal) | CPT/HCPCS: 36415; 73560; 73565; 80053; 81001; 85025; 99204 ==

== ENCOUNTER → 2023-04-24 11:11 | Outpatient (BNVA) | payer MEDICARE, SELFPAY | PROVIDERS: PCP Family Medicine; Referring Provider Specialist; Visit Provider Clinical Nurse Specialist Adult Health | DX: Z01.818 Encounter for other preprocedural examination (principal) | CPT/HCPCS: 81003; 87086 ==

== ENCOUNTER 2023-04-27 14:04 | Outpatient (CLI) | payer MEDICARE, SELFPAY ==
--- NOTE | 2023-04-27 14:10 | CT_ITS ---
WS: [id number] CT RIGHT KNEE, NONCONTRAST TECHNIQUE: Noncontrast CT of the RIGHT knee to include the RIGHT hip and ankle. JOS[facility]UA CLINICAL INFORMATION: osteoarthritis COMPARISON: None. DLP: 978.[address] scans at [facility] use at least one of these dose optimization techniques: automated e xposure control; mA and/or kV adjustment per patient size (includes targeted exams where dose is matc hed to clinical indication); or iterative reconstruction. FINDINGS: Advanced tricompartmental arthritis RIGHT knee with hypertrophic changes along the joint line. Hypert rophic patella. Small suprapatellar effusion. Degenerative arthritis sacroiliac joints. Moderate dege nerative arthritis RIGHT greater than LEFT hips. CT/CT knee RT JOSHUA IMPRESSION: Images obtained for preoperative purposes.
== END 2023-04-27 14:05 | disposition home or self-care (01) ==
LOC: RAD 14:05
PROVIDERS: PCP Family Medicine; Visit Provider Specialist
DX: M17.11 Unilateral primary osteoarthritis, right knee (principal); M16.0 Bilateral primary osteoarthritis of hip; R82.71 Bacteriuria
CPT/HCPCS: 73700; 81000

== ENCOUNTER 2023-04-28 14:22 | Observation (INO) | payer MEDICARE, SELFPAY ==
[2023-04-24 17:55] VITALS: BP 130/28; PULSE 86; RESP 20; TEMP 36.6; O2SAT 98
[2023-04-28] VITALS (20 sets, daily range): BP systolic 74–165; BP diastolic 42–91; PULSE 65–102; RESP 12–20; TEMP 36.1–36.9; O2SAT 94–99; BMI 33.2
--- NOTE | 2023-04-28 09:51 | W.PM.OPSUD ---
Surgery/Procedure H&P Update DATE OF PROCEDURE: April 28, 2023 DATE H&P PERFORMED: 04/24/23 H&P UPDATE INFORMATION: I have reviewed H&P completed within last 30 days, I have examined patient prior to procedure, No changes to prior documentation and H&P is in [facility] EMR on date indicated PREOP DIAGNOSIS: Osteoarthritis right knee PLANNED PROCEDURE: Operation Date: 04/28/23 10:50 Proposed Procedures p RIGHT TOTAL KNEE ARTHROPLASTY WITH [facility] GUIDANCE 74859,M17.10(Right) - Latasha Laguerre MD Related Problem List Diagnoses (1) Primary osteoarthritis of right knee:
[2023-04-28] MEDS: acetaminophen 1,000 MG/100 ML PIGGYBACK 400 MG IV ×2 (09:52→18:25)
[2023-04-28] MEDS: sodium chloride 0.9% 1,000 ML 30 ML IV (09:52)
[2023-04-28] MEDS: CELEcoxib 200 mg Capsule 400 MG PO (09:54)
[2023-04-28] MEDS: gabapentin 300 mg Capsule PO (09:55)
--- NOTE | 2023-04-28 10:22 | ANES.PREANE2 ---
Pre-Anesthetic Assessment Height/Weight: Height 1.52 m Weight 77.111 kg Temp Pulse Resp BP Pulse Ox O2 Del Method 97.7 F 65 18 129/83 98 Room Air 04/28/23 09:23 04/28/23 09:23 04/28/23 09:23 04/28/23 09:23 04/28/23 09:23 04/28/23 09:28 Preop Diagnosis: Osteoarthritis right knee Operation Date: 04/28/23 10:50 Proposed Procedures p RIGHT TOTAL KNEE ARTHROPLASTY WITH [facility] GUIDANCE 84097,M17.10(Right) - Latasha Laguerre MD Familial anesthetic complications: none Was Beta Natalie taken within 24 hours: N/A Was Clonidine taken within 24 hours: N/A Last intake: Intake Last Liquid Date 04/27/23 Last Liquid Time 11:00 Last Solid Date 04/27/23 Last Solid Time 23:00 Social No alcohol and No tobacco Exam alert, oriented x 3, clear to auscultation bilaterally and regular rate & rhythm Airway Submandibular: within normal limits Cervical ROM: within normal limits Mallampati: Class II Dentition: full CV/HEM Hypertension GI Gastroesophageal Reflux Disease Metabolic Hyperlipidemia and Morbid Obesity [facility] [place] [place]oarthritis/DJD Anesthetic Plan ASA status: 3 Anesthesia: Regional (specify below) (SAB with adductor blk) Medications/Allergies Home Medications Medication Instructions Recorded Confirmed Last Taken Type gabapentin 300 mg capsule 400 mg PO BID 10/24/19 04/27/23 04/27/23 History lisinopril 5 mg tablet 10 mg PO DAILY 10/24/19 04/27/23 04/27/23 History calcium-vit A0-lyc-wzmakzaqm 500 1 cap PO DAILY 02/07/20 04/27/23 04/27/23 History mg-40 mg-200 unit-200 mcg capsule cyanocobalamin (vitamin B-12) 500 1,000 mcg PO DAILY 02/07/20 04/27/23 04/27/23 History mcg tablet (B-12 DOTS) pantoprazole 20 mg tablet,delayed 40 mg PO DAILY 02/07/20 04/27/23 04/28/23 08:15 History release tizanidine 2 mg tablet 2 mg PO Q8H PRN Pain 06/11/22 04/27/23 04/27/23 History cefdinir 300 mg capsule 300 mg PO Q12H #10 caps 04/24/23 04/27/23 04/27/23 Rx lovastatin 20 mg tablet 20 mg PO DAILY 04/24/23 04/27/23 04/27/23 History Allergies Allergy/AdvReac Type Severity Reaction Status Date / Time No Known Allergies Allergy Verified 04/28/23 09:20 Current Medications Generic Name Dose Route Start Last Admin Trade Name Eduard PRN Reason Stop Dose Admin Sodium Chloride 1,000 mls @ 30 mls/hr 04/28/23 09:30 04/28/23 09:52 Sodium Chloride 0.9% IV 04/29/23 09:29 30 mls/hr .Q24H DARA Administration PFSH Anesthesia Medical History (Updated 04/24/23 @ 09:47 by Juan David Lieberman NP) Arthritis Colon polyp Dyslipidemia Gastric ulcer Hypertension Obesity Surgical History (Updated 04/24/23 @ 09:34 by Juan David Lieberman NP) History of cholecystectomy History of colonoscopy with polypectomy History of esophagogastroduodenoscopy (EGD) History of gastric surgery History of tubal ligation (~1988) [facility]. Performed by Dr. Ellis S/P laparoscopic sleeve gastrectomy Family History Mother Hypertension Diabetes Hyperlipidemia Bladder cancer Sister Hypertension Hyperlipidemia Thyroid condition Breast cancer, Onset Age: 50 Unknown No problems noted. Denies family history of Anesthesia complication Bleeding disorder Social History Smoking and tobacco status: never smoked Alcohol intake: never Substance/Drug Use: never Lives independently: Yes Household members: spouse Current occupational status: retired Additional social history: Poorly balanced diet Data Anesthesia Cardiac Studies: No Data to Display
[2023-04-28] MEDS: ceFAZolin 2,000 MG in sodium chloride 0.9% (plus) 50 ML 100 MG IV ×2 (10:56→18:23)
--- NOTE | 2023-04-28 11:39 | ANES.PROC ---
Anesthesia Procedures Procedure/Date: 04/28/23 Nerve Block ^: Nerve Block 1: Main Anesthesia: spinal anesthesia block Time Out Performed: Yes Consent: requested by attending/covering physician, from patient, risks and benefits reviewed and patient agrees to proceed Nerve block location: adductor canal (right) Anesthesia monitors applied: pulse oximetry, EKG, BP cuff and oxygen Nerve block position: supine Anesthetic Used: ropivicaine 0.5% Amount of anesthesia used (mL): 20 Ultrasound used to: recognize landmarks Nerve Stimulator Used?: No Interscalene/Femoral BLK: 4 stimuplex 21 g needle used for position and inplane approach Injection: neg aspiration of heme Patient Tolerated Procedure: well Complications: none
[2023-04-28] MEDS: vancomycin 1,000 MG SDV 1000 MG XX (11:52)
[2023-04-28] MEDS: ceFAZolin 1,000 mg SDV 1000 MG IRRIGATION ×2 (11:53→11:56)
[2023-04-28] MEDS: sodium chloride 0.9% 250 mL Bag 50 ML XX (11:56)
--- NOTE | 2023-04-28 14:05 | XR_ITS ---
WS: [id number] Exam: XR knee RT 1-2V [id number] Date/Time of Exam: 04/28/2023 2:06 PM Reason For Exam: Status post right total knee arthroplasty Comparison 03/25/2023. A total knee prosthesis has been placed and appears to be in satisfactory position. Postoperative joe nges in the adjacent soft tissues. Anterior surgical skin clips. XR/XR knee RT 1-2V [id number] IMPRESSION: 1. Total knee replacement in satisfactory position.
[2023-04-28] MEDS: CELEcoxib 200 mg Capsule PO (16:02)
[2023-04-28] MEDS: oxyCODONE 5 mg IR Tab/Cap PO ×3 (16:02→22:09)
--- NOTE | 2023-04-28 16:08 | ANE.PACU2 ---
Inpatient post-anesthesia follow up: Airway intact: Yes Vital signs: Temperature 97.0 F Pulse Rate 98 Respiratory Rate 17 Blood Pressure 135/89 Pulse Oximetry 99 Oxygen Delivery Me thod Room Air Oxygen Flow Rate 6 Fraction of Inspir ed Oxygen Hydration adequate: Yes Nausea and vomiting: No Pain level: 1 Mental status: Baseline
--- NOTE | 2023-04-28 16:36 | PM.OP ---
Operative Report Date of procedure: April 28, 2023 Pre-op diagnosis: Primary osteoarthritis right knee with flexion contracture and varus deformity Post-op diagnosis: Primary osteoarthritis right knee with flexion contracture and varus deformity Post-op findings: Large osteophytes with significant degenerative osteoarthritic change including varus deformity and flexion contracture. Flexion contracture was approximately 17 degrees. Procedure done: Right total knee arthroplasty with Fazal guidance Implants: The Allyssa total knee system with a size 3 triathlon beaded cruciate retaining femur right, a triathlon titanium tibial component size beaded, a triathlon X3 tibial bearing CS insert size 3 X 11 mm and a beaded triathlon titanium asymmetric patella size 29 x 9 mm Specimens removed/disposition: Bone, disposed of Surgeon: Latasha Laguerre Community Affairs Manager: [facility] operating room technicians Anesthesia: MAC (With spinal, ASA 3. Supplemental adductor block) Estimated blood loss (mL): 200 Tourniquet time (min): 0 (Not utilized) IV fluids (mL): 1,300 Urine output (mL): 300 Complications: None Findings: Severe degenerative osteoarthritis with varus deformity and fixed flexion contracture as well as external rotation of the tibia. Brief History: Marifer presented today for right total knee arthroplasty. She states her pain has gradually progressed over the last ten years. She states she was told she needed to have knee replacement surgery, but they refused to do her surgery secondary to her BMI over 50 at that time. She states she has lost approximately 120 pounds, and she is ready to discuss possible surgery options. Current BMI is 33.2. She states she had gel injections ten years ago, but they offered little relief. She states walking and taking gabapentin is her only relief. Procedure: The patient was brought to the operating theater, and after undergoing spinal anesthesia with MAC and supplemental adductor block, ASA 3, the right lower extremity was prepped with Dura-Prep and draped in usual fashion following placement of a tourniquet high on the leg. The leg was then draped free.? Tourniquet was not elevated during the case.? A surgical pause was performed, and at the time of the surgical pause, we confirmed the site and side of surgery. Additionally, we confirmed the appropriate and timely administration of preoperative antibiotics, Ancef 2 g and Transexemic acid 1 g.? The availability of equipment was confirmed, and the patient's identity was verbalized as well.? An additional transexemic acid 1 g will be given on the floor as well. Following the surgical pause, an incision was made centering over the patella continuing proximally and distally as necessary to allow access to the knee joint. Dissection continued through skin and soft tissues using a scalpel. Hemostasis was obtained using electrocautery. The skin incision was followed by a median parapatellar arthrotomy. The leg was extended and the patella was able to be displaced laterally without difficulty.? Medial release was initially accomplished to allow placement for the Fazal array.? Appropriate arrays and markers were placed in appropriate position for use of the Fazal.? Preoperative planning had been accomplished and was discussed in detail with the Fazal printing supplies sales representative.? Intraoperative mapping of the femur and tibia was accomplished after the arrays were placed.? Internal markers were also placed.? Once we had accomplished the Fazal mapping, we began the appropriate resections for placement of the prosthesis.? The plan was for a cruciate retaining right total knee arthroplasty. Medial releases were accomplished prior to the surgical procedure to allow balancing of the knee. Once appropriate mapping had been accomplished retraction was established using manual retraction by surgical technicians and also the Fazal leg positioner and retractors.? The knee was evaluated.? There was significant osteoarthritic change with significant osteophyte formation a significant varus and flexion deformity.? The tibia was cut first with the Fazal.? Subsequently, appropriate bone resection of the femur was accomplished using the Fazal.? The femur was sized to a size 3.? Osteophytes were removed prior to this portion of the procedure.? We had performed a medial release at the beginning of the procedure to allow for placement of the array and to allow for better planning with flexion and extension adjustments per Fazal programming.? Following this resection, it was felt that appropriate size for the tibia was a size 3.? Tray was noted to fit nicely with good coverage.? Rim fit was accomplished with the size 3. A trial reduction was accomplished after osteophytes have been removed as well as the medial and lateral menisci.? We had removed the anterior cruciate ligament at the beginning of the case and preserved the posterior cruciate ligament.? Trial reduction was accomplished with a size 3 femoral cruciate retaining component and a size 3 tibial tray with a size 3 x 11 CS tibial bearing insert.? Alignment was felt to be appropriate.? Trial components were removed after the femur had been drilled.? Prior to removal of the tibial tray which had been pinned in position with appropriate rotation as determined by the Fazal plan, we broached the tibia.? Subsequently, the 4 drill holes were made for the prosthetic component.? All trial components were removed, and the wound was irrigated.? Plans were made for insertion of the prosthetic components.? Prior to this, the patella was manually prepared.? After resection of the articular surface with the jogging system, it was measured and measured a 29 mm patella.? We resected approximately 8 mm of patella.? Patellar height was restored with the patellar component. Once again, the wound was irrigated.? The Tritanium tibia was impacted into position.? The beaded femur was then impacted into position in a cementless fashion. The CS tibial insert was placed prior to placement of the femoral component. The patella was pressed into position with a patellar clamp.? Exparel was injected about the components deep and superficially.? The knee was then copiously irrigated with betadine and saline and suctioned dry.? Further irrigation was accomplished with saline following the Betadine.? Attention was then directed to closure. Closure was accomplished with 0 Vicryl in the fascial tissues.? This was followed by Surgiflo and vancomycin powder.? Following this, a 2-0 Monocryl was used in the subcutaneous tissues, and the skin was closed with skin annabel.? Care was taken to assure an excellent subcutaneous as well as skin closure.? A sterile dressing was then placed consisting of Dermabond Prineo, OpSite, sterile soft roll including over the foot, and an Jeremi wrap. The patient was returned the Recovery Room in a satisfactory condition. X-rays were obtained and reviewed there.? The patient will be discharged to the floor for postoperative rehabilitation and pain management. Related Problem List Diagnoses (1) Primary osteoarthritis of right knee:
[2023-04-28] MEDS: calcium carbonate 500 mg Chew Tablet 1000 MG PO (18:23)
[2023-04-28] MEDS: mupirocin oint 22 gm 1 APPLIC NASAL (18:23)
[2023-04-28] MEDS: chlorhexidine gluconate 0.12% Btl 473 mL 30 ML MUCOUS MEM ×2 (18:25→20:24)
[2023-04-28] MEDS: iron polysaccharide complex 150 mg Capsule PO (18:25)
[2023-04-28] MEDS: sennosides-docusate Tablet 2 TAB PO (18:25)
[2023-04-28] MEDS: gabapentin 400 mg Capsule PO (20:23)
[2023-04-28] MEDS: tizanidine 4 mg Tablet 2 MG PO (20:23)
[2023-04-28 23:45] LABS: Hematocrit 29.1 % (37.0-47.0); Hemoglobin 9.3 g/dL (11.5-15.3)
[2023-04-29] VITALS (18 sets, daily range): BP systolic 72–133; BP diastolic 35–80; PULSE 52–80; RESP 16–18; TEMP 36.4–37; O2SAT 96–100
[2023-04-29] MEDS: acetaminophen 1,000 MG/100 ML PIGGYBACK 400 MG IV ×2 (01:10→12:06)
[2023-04-29] MEDS: ceFAZolin 2,000 MG in sodium chloride 0.9% (plus) 50 ML 100 MG IV ×2 (02:46→12:06)
[2023-04-29] MEDS: CELEcoxib 200 mg Capsule PO ×2 (02:46→16:54)
[2023-04-29] MEDS: oxyCODONE 5 mg IR Tab/Cap PO ×2 (02:46→08:48)
[2023-04-29 04:42] LABS: Glucose Point of Care 89 mg/dL (70-110)
[2023-04-29 05:54] LABS: Basophils % 0.6 %; Eosinophils # 0.2 10^3/uL (0.0-0.8); Eosinophils % 2.7 %; Hematocrit 29.9 % (37.0-47.0); Hemoglobin 9.6 g/dL (11.5-15.3); Lymphocytes # 1.4 10^3/uL (0.8-4.8); Lymphocytes % 21.8 %; Mean Corpuscular HGB Conc 32.1 g/dL (30.0-36.0); Mean Corpuscular Hemoglobin 30.2 pg (28.0-34.0); Mean Platelet Volume 10.4 fL (7.4-10.4); Monocytes # 0.6 10^3/uL (0.2-0.9); Monocytes % 9.9 %; Neutrophils # 4.04 10^3/uL (1.8-7.7); Neutrophils % 64.7 %; Nucleated Red Blood Cells % 0 %; Platelet Count 166 10^3/cmm (130-400); Red Blood Count 3.18 10^6/uL (4.1-5.3); Red Cell Distribution Width 13.8 % (12.1-15.1); White Blood Count 6.3 10^3/uL (4.0-10.0)
[2023-04-29 06:24] LABS: Anion Gap 8.3 (5-19); Blood Urea Nitrogen 13 mg/dL (8-23); Calcium 8.6 mg/dL (8.5-10.5); Carbon Dioxide 27 mmol/L (22-29); Chloride 109 mmol/L (98-107); Creatinine Clr Calc Pharmacy 63.4945; Glomerular Filtration Rate 71.8 mL/min (90-130); Glucose 94 mg/dL (65-115); Osmolality Calculated 290 mOsm/kg (285-295); Potassium 4.3 mmol/L (3.5-5.1); Sodium 140 mmol/L (136-145)
[2023-04-29] MEDS: chlorhexidine gluconate 0.12% Btl 473 mL 30 ML MUCOUS MEM ×4 (08:47→20:15)
[2023-04-29] MEDS: calcium carbonate 500 mg Chew Tablet 1000 MG PO ×2 (08:49→17:26)
[2023-04-29] MEDS: cholecalciferol (vitamin D3) 1,000 unit Tablet 1000 UNIT PO (08:49)
[2023-04-29] MEDS: aspirin 325 mg EC Tablet PO (08:49)
[2023-04-29] MEDS: iron polysaccharide complex 150 mg Capsule PO ×2 (08:50→17:26)
[2023-04-29] MEDS: sennosides-docusate Tablet 2 TAB PO ×2 (08:50→17:26)
[2023-04-29] MEDS: multivitamin therapeutic Tablet 1 TAB PO (08:51)
[2023-04-29] MEDS: gabapentin 400 mg Capsule PO ×2 (08:51→20:15)
[2023-04-29] MEDS: atorvastatin 40 mg Tablet 20 MG PO (08:51)
[2023-04-29] MEDS: lisinopril 10 mg Tablet PO (08:51)
[2023-04-29] MEDS: pantoprazole DR 40 mg Tablet PO (08:51)
[2023-04-29] MEDS: mupirocin oint 22 gm 1 APPLIC NASAL ×2 (08:52→17:01)
[2023-04-29] MEDS: naloxone 0.4 mg/ml SDV 0.1 MG IV (09:31)
[2023-04-29] MEDS: sodium chloride 0.9% 500 ML 999 ML IV (10:04)
--- NOTE | 2023-04-29 10:24 | PM.CONSULT ---
Providers/Reason For Consult Consulting Physician/Specialty*: /Orthopedic Reason for Consult*: Hypotension Attending Physician: Latasha Laguerre MD Primary Care Provider: Guy Angulo History of Present Illness History of Present Illness Marifer Mejia is a 67 year old female with PMH of hypotension currently admitted under orthopedic service for the managment of Primary osteoarthritis right knee s/p ?right total knee arthroplasty,rapid response was called this morning as the patient became briefly unresposive this morning,B/P taken during the acute event showed hypotesion,ekg done at that time showed Possible sinus bradycardia with PACs, patient was also given narcan at that time, as she had received oxycodone sometime earler,patient was also bolused with 500 cc normal saline,serial blood pressure monitoring done during the day has been good, orthostatic vitals done during the day has been negative.When patient regained conciousness she denied any chest pain, sob, palpitation,she stated that she experienced the event while she was being moved to the chair,and at that time she felt sick to stomach. Medications/Allergies Home Medications Medication Instructions Recorded Confirmed Last Taken Type gabapentin 300 mg capsule 400 mg PO BID 10/24/19 04/27/23 04/27/23 History lisinopril 5 mg tablet 10 mg PO DAILY 10/24/19 04/27/23 04/27/23 History calcium-vit J6-ttl-spelxiolc 500 1 cap PO DAILY 02/07/20 04/27/23 04/27/23 History mg-40 mg-200 unit-200 mcg capsule cyanocobalamin (vitamin B-12) 500 1,000 mcg PO DAILY 02/07/20 04/27/23 04/27/23 History mcg tablet (B-12 DOTS) pantoprazole 20 mg tablet,delayed 40 mg PO DAILY 02/07/20 04/27/23 04/28/23 08:15 History release tizanidine 2 mg tablet 2 mg PO Q8H PRN Pain 06/11/22 04/27/23 04/27/23 History cefdinir 300 mg capsule 300 mg PO Q12H #10 caps 04/24/23 04/27/23 04/27/23 Rx lovastatin 20 mg tablet 20 mg PO DAILY 04/24/23 04/27/23 04/27/23 History Allergies Allergy/AdvReac Type Severity Reaction Status Date / Time No Known Allergies Allergy Verified 04/28/23 09:20 Current Medications Generic Name Dose Route Start Last Admin Trade Name Freq PRN Reason Stop Dose Admin Aspirin 325 mg 04/29/23 09:00 04/29/23 08:49 Aspirin 325 Mg Ec Tablet PO 325 mg DAILY DARA Administration Atorvastatin Calcium 20 mg 04/29/23 09:00 04/29/23 08:51 Atorvastatin 40 Mg Tablet PO 20 mg DAILY DARA Administration Calcium Carbonate 1,000 mg 04/28/23 18:00 04/29/23 08:49 Calcium Carbonate 500 Mg Chew Tablet PO 1,000 mg BID DARA Administration Celecoxib 200 mg 04/28/23 15:31 04/29/23 02:46 Celecoxib 200 Mg Capsule PO 200 mg Q12H DARA Administration Chlorhexidine Gluconate 30 ml 04/28/23 17:00 04/29/23 08:47 Chlorhexidine Gluconate 0.12% Btl 473 Ml MUCOUS MEM 30 ml QID DARA Administration Gabapentin 400 mg 04/28/23 21:00 04/29/23 08:51 Gabapentin 400 Mg Capsule PO 400 mg BID@0900,2100 DARA Administration Cefazolin Sodium 2,000 mg/ 50 mls @ 100 mls/hr 04/28/23 19:00 04/29/23 04:13 Sodium Chloride IV 04/29/23 11:29 Infused Q8H DARA Infusion Protocol Lisinopril 10 mg 04/29/23 09:00 04/29/23 08:51 Lisinopril 10 Mg Tablet PO 10 mg DAILY DARA Administration Multivitamins Therapeutic 1 tab 04/29/23 09:00 04/29/23 08:51 Multivitamin Therapeutic Tablet PO 1 tab DAILY DARA Administration Mupirocin 1 applic 04/28/23 18:00 04/29/23 08:52 Mupirocin Oint 22 Gm NASAL 05/03/23 17:59 1 applic BID DARA Administration Protocol Naloxone HCl 0.1 mg 04/28/23 15:31 04/29/23 09:31 Naloxone 0.4 Mg/Ml Sdv IV 0.1 mg Q2M PRN Administration Respiratory rate less than 8. Oxycodone HCl 5 - 10 mg 04/28/23 21:53 04/29/23 08:48 Oxycodone 5 Mg Ir Tab/Cap PO 5 mg Q4H PRN Administration MODERATE PAIN Pantoprazole Sodium 40 mg 04/29/23 09:00 04/29/23 08:[address] 40 Mg Tablet PO 40 mg DAILY DARA Administration Polysaccharide Iron Complex 150 mg 04/28/23 18:00 04/29/23 08:50 Iron Polysaccharide Complex 150 Mg Capsule PO 150 mg BIDWM DARA Administration Senna/Docusate Sodium 2 tab 04/28/23 18:00 04/29/23 08:50 Sennosides-Docusate Tablet PO 2 tab BID DARA Administration Tizanidine HCl 2 mg 04/28/23 15:31 04/28/23 20:23 Tizanidine 4 Mg Tablet PO 2 mg Q8H PRN Administration Pain Vitamin D 1,000 unit 04/29/23 09:00 04/29/23 08:49 Cholecalciferol (Vitamin D3) 1,000 Unit Tablet PO 1,000 unit DAILY DARA Administration PFSH Acute PFSH: Medical History (Updated 04/29/23 @ 22:21 by Mekhi Albarran MD) Arthritis Colon polyp Dyslipidemia Gastric ulcer Hypertension Obesity Surgical History (Updated 04/24/23 @ 09:34 by Juan David Lieberman NP) History of cholecystectomy History of colonoscopy with polypectomy History of esophagogastroduodenoscopy (EGD) History of gastric surgery History of tubal ligation (~1988) [facility]. Performed by Dr. Ellis S/P laparoscopic sleeve gastrectomy Family History Mother Hypertension Diabetes Hyperlipidemia Bladder cancer Sister Hypertension Hyperlipidemia Thyroid condition Breast cancer, Onset Age: 50 Unknown No problems noted. Denies family history of Anesthesia complication Bleeding disorder Social History Smoking and tobacco status: never smoked Alcohol intake: never Substance/Drug Use: never Lives independently: Yes Household members: spouse Current occupational status: retired Additional social history: Poorly balanced diet Vitals/I&O/Wt Last Vital Signs Temp 98.6 F 04/29/23 07:14 Pulse 59 L 04/29/23 07:14 Resp 16 04/29/23 08:48 BP 119/78 04/29/23 07:14 Pulse Ox 99 04/29/23 08:48 O2 Del Method Room Air 04/28/23 17:55 O2 Flow Rate 6 04/28/23 14:14 04/28/23 04/29/23 04/29/23 22:59 06:59 14:59 Intake Total 870 / 2430 150 / 2580 240 / 240 Output Total 300 / 800 300 / 1100 Balance 570 / 1630 -150 / 1480 240 / 240 Weight last 48 hrs Weight 77.111 kg Physical Exam Const: COMMON NORMALS: patient oriented x3 HENMT: COMMON NORMALS: normocephalic and atraumatic HEAD & SCALP: normocephalic and atraumatic Resp: COMMON NORMALS: normal respiratory effort, No retractions, No use of accessory muscles and clear to auscultation bilaterally EFFORT & INSPECTION: Yes symmetric chest movement AUSCULTATION: clear to auscultation bilaterally Cardio: COMMON NORMALS: regular rate, regular rhythm, S1 normal heart sound present, S2 normal heart sound present, No gallops present (Cardio), No murmurs present (Cardio), No rub (Cardio) and Peripheral pulses 2+ throughout RATE: regular rate RHYTHM: regular rhythm HEART SOUNDS: S1 normal heart sound present and S2 normal heart sound present PERIPHERAL PULSES: Peripheral pulses 2+ throughout GI: COMMON NORMALS: Normal to inspection, nondistended, normoactive bowel sounds present, Soft to palpation, non-tender, No hepatosplenomegaly present and no masses AUSCULTATION: Yes normoactive bowel sounds PALPATION: Yes Soft to palpation and Yes No hepatosplenomegaly present RECTAL EXAM: deferred Extremity: COMMON NORMALS: no clubbing, cyanosis or edema and no pedal edema Neuro: COMMON NORMALS: patient oriented x3 Urinary Catheter Management: Dowell: Cath Placed During This Visit: yes, but has since been removed by the nurse Reason for Continuing Indwelling Catheter: Decision to DC Catheter Urinary Catheter Date of Insertion: 04/28/23 Urinary Catheter Time of Insertion: 11:15 Date Urinary Catheter Removed: 04/29/23 Time Urinary Catheter Discontinued: 06:15 Data 04/29/23 05:34 04/29/23 05:34 A&P Assessment and plan (1) Hypotension: (2) Syncope: (3) Thyroid nodule: Plan 67 year old female with PMH of hypotension currently admitted under orthopedic service for the managment of Primary osteoarthritis right knee s/p ?right total knee arthroplasty. Assessment : Sycope : Likely 2/2 Ac hypotension possibly 2/2 pain medication. ekg Possible sinus bradycardia with PACs, CTA Chest :No P/E Lower extremity doppler vein :Negative for DVT Monitor Orthostatic vital sign Continue gentle I.V Hydration Telemtry monitoring Ac Hypotension: Possibly 2/2 to pain medications Follow cortisol Continue gentle I.V Hydration Monitor Vitals Hold lisinopril for now Incidental findings of thyroid nodule on CTA Chest: U/S Thyroid : Mildly suspicious 5.9 cm right thyroid nodule warrants FNA on a nonemergent basis. Mildly suspicious 1.7 cm left thyroid nodule warrants follow-up ultrasound at 1, 3, and 5 years. Follow TSH Endocrine follow up as outpatient. Consult Attestations Medical Necessity Statement: per primary Coding Level of Care Code Acute Code for Chg Fwd Diagnoses Hypotension I95.9 Syncope R55 Thyroid nodule E04.1
--- NOTE | 2023-04-29 10:37 | ECG_ITS ---
[facility] Test Date: 2023-04-29 Pat Name: Marifer Mejia Department: Room: 262 Gender: Female Network Professional: : 1955 Requested By: Mekhi Albarran Order Number: [id number] Jesus Alberto MD: Najma White M.D. Measurements Intervals [place] Rate: 57 P: 0 PA: 0 QRS: 1 QRSD: 89 T: 3 QT: 434 QTc: 423 Interpretive Statements Possible sinus bradycardia with PACs ABNORMAL RHYTHM ECG No previous ECG available for comparison Electronically Signed On 04-29-2023 21:30:23 CDT by Najma White M.D. [id number]
--- NOTE | 2023-04-29 10:49 | CTR_ITS ---
PROCEDURE INFORMATION: Exam: CTA Chest With Contrast Exam date and time: 04/29/2023 11:28 AM Age: 67 years old Clinical indication: Dyspnea; Patient HX: Knee replacement surgery 1 day ago; Additional info: Rule out pe TECHNIQUE: Imaging protocol: Computed tomographic angiography of the chest with contrast. Exam focused on the arteries. 3D rendering (Not supervised by radiologist): MIP and/or 3D reconstructed images were created by the technologist. Radiation optimization: All CT scans at this facility use at least one of these dose optimization techniques: automated exposure control; mA and/or kV adjustment per patient size (includes targeted exams where dose is matched to clinical indication); or iterative reconstruction. Contrast material: OMNI 350; Contrast volume: 100 ml; Contrast route: INTRAVENOUS (IV); REPORTING DATA: Count of CT and Cardiac NM exams in prior 12 months: This patient has received [address] and 0 known cardiac nuclear medicine studies in the 12 months prior to the current study. COMPARISON: No relevant prior study available. RADIATION DOSE METRICS: Total DLP (mGy-cm): 426.92 FINDINGS: Pulmonary arteries: Normal. No pulmonary emboli. Aorta: Mild systemic atherosclerotic calcification without aortic aneurysm. Thyroid: Partially visualized heterogeneously enlarged right thyroid gland measuring 5 cm in axial dimension causes mild mass effect on the trachea. Lungs: Mild dependent atelectasis. Mild ground-glass tree-in-bud nodularity at the posterior right upper lobe. No consolidation. No masses. Pleural spaces: Unremarkable. No pneumothorax. No pleural effusion. Heart: Unremarkable. No cardiomegaly. No pericardial effusion. Lymph nodes: Unremarkable. No enlarged lymph nodes. Diaphragm: Small hiatal hernia. Gallbladder and bile ducts: Prior cholecystectomy. Spleen: Tiny splenic calcifications in keeping with sequela of old granulomatous disease. Stomach and bowel: Prior gastric bypass. Bones/joints: No acute fracture. Mild degenerative changes along the spine. Soft tissues: Unremarkable. CT/CT angio chest PE protcl [id number] IMPRESSION: 1. No acute pulmonary embolism. 2. Mild right upper lobe tree-in-bud nodularity likely represents infectious or inflammatory bronchiolitis. 3. Heterogeneously enlarged right thyroid gland. Recommend nonemergent ultrasound. 4. Additional chronic and incidental findings as above.
--- NOTE | 2023-04-29 10:53 | USCV_ITS ---
Marifer Mejia Age: 67 Gender: F : 1955 Exam Date: 04/29/2023 12:01 Ordering Phys: Mekhi Albarran MD Technologist: [place] [facility] [place] Indication: PROCEDURES: Bilaterally, the common femoral, superficial femoral, profunda femoral, popliteal, posterior tibial, greater saphenous veins, and the peroneal trunk were identified and interrogated in the standard fashion. These veins were found to be easily compressible with spontaneous blood flow. No evidence of insufficiency or thrombus noted. FINDINGS: no dvt CONCLUSIONS No evidence of right lower extremity DVT. No evidence of left lower extremity DVT. Barak Oshea MD (Electronically Signed) Final Date: 29 April 2023 17:10 S
[2023-04-29] MEDS: iohexol 350 mg/mL 500 mL Btl (per mL) IV (11:46)
--- NOTE | 2023-04-29 12:08 | PC.NURSE ---
Patient's spouse called and talked with this nurse. He was very frustrated over phone stating nobody is telling him anything and he demanded to speak with the doctor. He stated he would be coming in today. This nurse tried to explain to the that patient's blood pressure dropped this morning while sitting in the chair after she had gotten up with therapy. Patient's then came to the room and talked with nurse Laisha EMERSON. He then calmed down and apologized for being so upset. Dr. Laguerre is rounding with patient and now and Dr. Albarran came by earlier and rounded with the both of them as well.
--- NOTE | 2023-04-29 12:44 | PM.PN ---
Subjective Subjective: The patient is seen in her room following right total knee arthroplasty. Preoperatively, the patient had significant flexion contracture and varus deformity. On her first postoperative day, she complained of significant tenderness. She did have an episode of hypotension in the evening following surgery and again in the morning. Medicine was consulted, and the patient was given Narcan. This improved her somewhat, but this did compromise her ability to participate with physical therapy on the first postoperative day. She is seen today with her in the room, and he is somewhat frustrated regarding her events. In discussion with her, she now remembers that she cannot take oxycodone as it causes her weakness and lower blood pressure. This was the medication she was given so this will be changed for her. Medications: Medication Review Details: Generic Name Dose Route Start Last Admin Trade Name Freq PRN Reason Stop Dose Admin Hydrocodone Bitart /Acetaminophen 1 - 2 tab 04/29/23 12:54 04/30/23 08:31 Hydrocodone-Acet aminophen 5-325 Mg Tablet PO 1 tab Q4H PRN Administration MODERATE PAIN Aspirin 325 mg 04/29/23 09:00 04/30/23 07:52 Aspirin 325 Mg E c Tablet PO 325 mg DAILY DARA Administration Atorvastatin Calci um 20 mg 04/29/23 09:00 04/30/23 07:53 Atorvastatin 40 Mg Tablet PO 20 mg DAILY DARA Administration Calcium Carbonate 1,000 mg 04/28/23 18:00 04/30/23 07:53 Calcium Carbonat e 500 Mg Chew Tabl et PO 1,000 mg BID DARA Administration Celecoxib 200 mg 04/28/23 15:31 04/30/23 03:35 Celecoxib 200 Mg Capsule PO 200 mg Q12H DARA Administration Chlorhexidine Gluc yoon 30 ml 04/28/23 17:00 04/30/23 07:58 Chlorhexidine Gl uconate 0.12% Btl 473 Ml MUCOUS MEM Not Given QID DARA Gabapentin 400 mg 04/28/23 21:00 04/30/23 07:54 Gabapentin 400 M g Capsule PO 400 mg BID@0900,2100 DARA Administration Sodium Chloride 1,000 mls @ 75 ml s/hr 04/29/23 18:00 04/29/23 18:45 Sodium Chloride 0.9% IV 75 mls/hr .[id number] DARA Administration Lisinopril 10 mg 04/29/23 09:00 04/29/23 08:51 Lisinopril 10 Mg Tablet PO 10 mg DAILY DARA Administration Multivitamins Ther apeutic 1 tab 04/29/23 09:00 04/30/23 07:53 Multivitamin The rapeutic Tablet PO 1 tab DAILY DARA Administration Mupirocin 1 applic 04/28/23 18:00 04/30/23 07:58 Mupirocin Oint 2 2 Gm NASAL 05/03/23 17:59 Not Given BID [facility] Protocol Naloxone HCl 0.1 mg 04/28/23 15:31 04/29/23 09:31 Naloxone 0.4 Mg/ Ml Sdv IV 0.1 mg Q2M PRN Administration Respiratory rate less than 8. Pantoprazole Sodiu m 40 mg 04/29/23 09:00 04/30/23 07:[address] 40 Mg Tablet PO 40 mg DAILY DARA Administration Polysaccharide Iro n Complex 150 mg 04/28/23 18:00 04/30/23 07:53 Iron Polysacchar leticia Complex 150 Mg Capsule PO 150 mg BIDWM DARA Administration Senna/Docusate Sod ium 2 tab 04/28/23 18:00 04/30/23 07:53 Sennosides-Docus ate Tablet PO 2 tab BID DARA Administration Tizanidine HCl 2 mg 04/28/23 15:31 04/28/23 20:23 Tizanidine 4 Mg Tablet PO 2 mg Q8H PRN Administration Pain Vitamin D 1,000 unit 04/29/23 09:00 04/30/23 07:52 Cholecalciferol (Vitamin D3) 1,000 Unit Tablet PO 1,000 unit DAILY DARA Administration Vitals/I&O/Wt Last Vital Signs Temp 97.7 F 04/29/23 12:20 Pulse 56 L 04/29/23 12:20 Resp 18 04/29/23 12:20 BP 110/76 04/29/23 12:20 Pulse Ox 100 04/29/23 12:20 O2 Del Method Room Air 04/29/23 12:20 O2 Flow Rate 6 04/28/23 14:14 04/28/23 04/29/23 04/29/23 22:59 06:59 14:59 Intake Total 870 / 2430 150 / 2580 240 / 240 Output Total 300 / 800 300 / 1100 Balance 570 / 1630 -150 / 1480 240 / 240 Weight last 48 hrs Weight 170 lb Physical Exam Const: COMMON NORMALS: no acute distress, average body habitus, patient oriented x3 and alert GENERAL APPEARANCE: cooperative and comfortable ORIENTATION/CONSCIOUSNESS: Yes awake HENMT: COMMON NORMALS: normocephalic and atraumatic HEAD & SCALP: normocephalic and atraumatic Eye: GENERAL EYE: appearance normal, both eyes and all related structures Chest: COMMONS NORMALS: normal inspection of the chest Resp: COMMON NORMALS: normal respiratory effort EFFORT & INSPECTION: Yes able to speak in complete sentences and Yes symmetric chest movement Extremity: RIGHT LOWER EXTREMITY: Yes knee joint (Patient's large postoperative dressing is removed. ) Right knee: Yes inspection (OpSite is intact with no evidence of ongoing drainage. ), Yes palpation (Minimal to no tenderness.), Yes ROM (Not evaluated.) and Yes neurovascular exam (No evidence of DVT.) Neuro: COMMON NORMALS: patient oriented x3 SENSORIUM/ORIENTATION: Yes alert Psych: COMMON NORMALS: mental status grossly normal APPEARANCE: Yes grossly normal ATTITUDE: Yes calm and Yes engaged ATTENTION/CONCENTRATION: Yes attention grossly intact Skin: COMMON NORMALS: no rashes or lesions noted GENERAL SKIN EXAM: no rashes or lesions noted Urinary Catheter Management: Dowell: Cath Placed During This Visit: yes, but has since been removed by the nurse Reason for Continuing Indwelling Catheter: Decision to DC Catheter Urinary Catheter Date of Insertion: 04/28/23 Urinary Catheter Time of Insertion: 11:15 Date Urinary Catheter Removed: 04/29/23 Time Urinary Catheter Discontinued: 06:15 Data 04/30/23 05:23 04/30/23 05:23 A&P Assessment and plan (1) Status post total right knee replacement not using cement: Patient is seen today, postop day 1 following right total knee arthroplasty. The surgical procedure was uneventful, but the patient had significant pain postoperatively. She required further pain medications, and then she had an hypotensive episode. She is seen today, and she had a heart rapid response this morning. In discussion with the patient and her , she states that she has remembered that oxycodone causes her weakness and lower blood pressure. This was the medication given to her for her pain following total knee arthroplasty. This will be changed to hydrocodone, and the patient states that she cannot take this without similar effects. Discussion was undertaken regarding the events. Her dressing is removed. The OpSite remains intact. There is minimal to no swelling. There is no evidence of DVT. Secondary to the rapid response this morning, medicine has been consulted. They have ordered a chest CT and ultrasounds of the lower extremity to rule out DVT and PE. The findings of these studies were both negative aside from thyroid nodules which will need to be evaluated as an outpatient. (2) Primary osteoarthritis of right knee: (3) Hypotension: (4) Syncope: Attestations Medical Necessity Statement*: Ongoing medical care following right total knee arthroplasty. Coding Level of Care Code Acute Code for Chg Fwd Diagnoses Status post total right knee replacement not using cement Z96.651 Primary osteoarthritis of right knee M17.11 Hypotension I95.9 Syncope R55
--- NOTE | 2023-04-29 14:13 | USR_ITS ---
PROCEDURE INFORMATION: Exam: US Soft Tissue Head and Neck, Thyroid Exam date and time: 04/29/2023 4:20 PM Age: 67 years old Clinical indication: Other: Heterogeneously enlarged right thyroid gland TECHNIQUE: Imaging protocol: Real-time ultrasound scan of the neck with image documentation. Exam focused on the thyroid. COMPARISON: CT angio chest PE protcl [id number] 04/29/2023 11:28 AM FINDINGS: Right thyroid lobe: Enlarged, measuring 6.3 x 4.3 x 6.9 cm. Single large nodule: Nodule 1: Location: Right lobe Size: 5.9 x 3.9 x 5.7 cm Composition: Almost completely solid Echogenicity: Isoechoic Shape: Wider than tall Margin: Smooth Echogenic foci: None TIRADS level: TR 3 TR 3- Mildly Suspicious, FNA if >/= 2.5 cm, Follow if >/= 1.5 cm Left thyroid lobe: Measures 1.8 x 2.2 x 5.9 cm. Single nodule: Nodule 2: Location: Left upper lobe Size: 1.7 x 1.1 x 1.5 cm Composition: Solid Echogenicity: Iso to hyperechoic Shape: Wider than tall Margin: Smooth Echogenic foci: None TIRADS level: TR 3 TR 3- Mildly Suspicious, FNA if >/= 2.5 cm, Follow if >/= 1.5 cm Isthmus: Thickened, measuring 1 cm. No nodules. US/US thyroid [id number] IMPRESSION: 1. Mildly suspicious 5.9 cm right thyroid nodule warrants FNA on a nonemergent basis. 2. Mildly suspicious 1.7 cm left thyroid nodule warrants follow-up ultrasound at 1, 3, and 5 years.
[2023-04-29] MEDS: HYDROcodone-acetaminophen 5-325 mg Tablet PO ×2 (14:42→20:58)
[2023-04-29] MEDS: sodium chloride 0.9% 1,000 ML 75 ML IV (18:45)
--- NOTE | 2023-04-29 19:36 | PC.NURSE ---
Called to patients room by OT due to patient unresponsive. Dr. Albarran followed this nurse in room and called rapid response at approximately 0929. 5 mg Oxy IR given at 0848 along with morning medications. Patient was positioned back in bed, 0.1 mg Narcan ordered to be given by Dr. Albarran. Patient was talking and responsive after administration. Dr. Albarran ordered 500 ml bolus of NS. Patient vitals 72/35 BP, 59 HR, 98% on RA. At 0936 BP 104/59, HR 55, 100% RA. Dr. Laguerre also notified.
[2023-04-30] VITALS (7 sets, daily range): BP systolic 102–130; BP diastolic 58–77; PULSE 70–97; RESP 16–18; TEMP 36–36.7; O2SAT 94–97
[2023-04-30] MEDS: HYDROcodone-acetaminophen 5-325 mg Tablet PO ×4 (00:28→12:30)
[2023-04-30] MEDS: CELEcoxib 200 mg Capsule PO (03:35)
[2023-04-30 06:15] LABS: Basophils % 0.3 %; Eosinophils # 0.5 10^3/uL (0.0-0.8); Eosinophils % 5.2 %; Hematocrit 31.7 % (37.0-47.0); Hemoglobin 10.1 g/dL (11.5-15.3); Lymphocytes % 12.1 %; Mean Corpuscular HGB Conc 31.9 g/dL (30.0-36.0); Mean Corpuscular Hemoglobin 30.1 pg (28.0-34.0); Mean Corpuscular Volume 94.6 fl (81-99); Mean Platelet Volume 11.3 fL (7.4-10.4); Monocytes # 0.8 10^3/uL (0.2-0.9); Monocytes % 9.2 %; Neutrophils # 6.29 10^3/uL (1.8-7.7); Neutrophils % 72.9 %; Nucleated Red Blood Cells % 0 %; Platelet Count 189 10^3/cmm (130-400); Red Blood Count 3.35 10^6/uL (4.1-5.3); Red Cell Distribution Width 14.4 % (12.1-15.1); White Blood Count 8.6 10^3/uL (4.0-10.0)
[2023-04-30 07:12] LABS: Anion Gap 11.2 (5-19); Blood Urea Nitrogen 16 mg/dL (8-23); Calcium 8.6 mg/dL (8.5-10.5); Carbon Dioxide 25 mmol/L (22-29); Chloride 109 mmol/L (98-107); Glomerular Filtration Rate 55.5 mL/min (90-130); Glucose 118 mg/dL (65-115); Osmolality Calculated 294 mOsm/kg (285-295); Potassium 4.2 mmol/L (3.5-5.1); Sodium 141 mmol/L (136-145)
[2023-04-30 07:15] LABS: Thyroid Stimulating Hormone 1.03 uIU/mL (0.27-4.20)
[2023-04-30] MEDS: aspirin 325 mg EC Tablet PO (07:52)
[2023-04-30] MEDS: cholecalciferol (vitamin D3) 1,000 unit Tablet 1000 UNIT PO (07:52)
[2023-04-30] MEDS: iron polysaccharide complex 150 mg Capsule PO (07:53)
[2023-04-30] MEDS: atorvastatin 40 mg Tablet 20 MG PO (07:53)
[2023-04-30] MEDS: multivitamin therapeutic Tablet 1 TAB PO (07:53)
[2023-04-30] MEDS: calcium carbonate 500 mg Chew Tablet 1000 MG PO (07:53)
[2023-04-30] MEDS: sennosides-docusate Tablet 2 TAB PO (07:53)
[2023-04-30] MEDS: gabapentin 400 mg Capsule PO (07:54)
[2023-04-30] MEDS: pantoprazole DR 40 mg Tablet PO (07:54)
--- NOTE | 2023-04-30 10:25 | PC.CHAP ---
Pastoral Care Encounter/Spiritual Assessment Type of Contact [] Declined field technical assistant visit [] Patient/Family/Request visit [] Outpatient visit [] Follow-up visit [] Physician referral [] Code/Alert [x] Routine visit [] Staff referral [] Actively dying [] Patient sleeping [] Family support [] [] Out of room [] Palliative care [] [x] Receiving care in room [] Pre-surgical visit [] Trauma [] Long length of stay [] ICU visit [] Other: Relational/Emotional Strength [x] Patient feels connected with others/family/visitors/staff [] Distress [] Loneliness/isolation [] Abandonment Spirituality of Patient [x] Person of Rachel [] Attends Gnosticist of their Rachel [x] Believes in Prayer [] Reads Bible or Methodist materials [] There are Spiritual issues to be addressed Awning Hanger Interventions [x] Prayer [x] Active listening [x] Non-anxious presence [x] Spiritual/emotional support [] Crisis/trauma care [x] Spiritual counseling [] Bereavement support [] Provided bereavement packet [] Provided Bible/devotional materials [] Provided toy/stuffed animal, coloring book to patient or family member [] Provided Communion [] Anointing/[place]lis [] Salvation [x] Completed spiritual assessment [] Other: Impact on Illness or Injury [] Angry [] Fearful [] Anxious [] Often cries [] Exhaustion [] Unable to work [] Unable to attend yarsanism [] Unable to walk/stand [] Unable to read [] Unable to drive [] Unable to eat/drink [] Unable to sleep [] Unable to be with family [] Patient intubated [] Other: Summary surgery on sholder in some pain has a good attitude well be going home Time spent with patient 10 mins
--- NOTE | 2023-04-30 10:54 | P.PN_ITS ---
Subjective Subjective: Patient was seen and examined this morning, blood pressure is decent, currently maintaining a good MAP, no other episodes of hypotension, orthostatic vital signs are negative. Medications: Medication Review Details: Generic Name Dose Route Start Last Admin Trade Name Eduard PRN Reason Stop Dose Admin Hydrocodone Bitart /Acetaminophen 1 - 2 tab 04/29/23 12:54 04/30/23 08:31 Hydrocodone-Acet aminophen 5-325 Mg Tablet PO 1 tab Q4H PRN Administration MODERATE PAIN Aspirin 325 mg 04/29/23 09:00 04/30/23 07:52 Aspirin 325 Mg E c Tablet PO 325 mg DAILY DARA Administration Atorvastatin Calci um 20 mg 04/29/23 09:00 04/30/23 07:53 Atorvastatin 40 Mg Tablet PO 20 mg DAILY DARA Administration Calcium Carbonate 1,000 mg 04/28/23 18:00 04/30/23 07:53 Calcium Carbonat e 500 Mg Chew Tabl et PO 1,000 mg BID DARA Administration Celecoxib 200 mg 04/28/23 15:31 04/30/23 03:35 Celecoxib 200 Mg Capsule PO 200 mg Q12H DARA Administration Chlorhexidine Gluc yoon 30 ml 04/28/23 17:00 04/30/23 07:58 Chlorhexidine Gl uconate 0.12% Btl 473 Ml MUCOUS MEM Not Given QID DARA Gabapentin 400 mg 04/28/23 21:00 04/30/23 07:54 Gabapentin 400 M g Capsule PO 400 mg BID@0900,2100 DARA Administration Sodium Chloride 1,000 mls @ 75 ml s/hr 04/29/23 18:00 04/29/23 18:45 Sodium Chloride 0.9% IV 75 mls/hr .[id number] DARA Administration Lisinopril 10 mg 04/29/23 09:00 04/29/23 08:51 Lisinopril 10 Mg Tablet PO 10 mg DAILY DARA Administration Multivitamins Ther apeutic 1 tab 04/29/23 09:00 04/30/23 07:53 Multivitamin The rapeutic Tablet PO 1 tab DAILY DARA Administration Mupirocin 1 applic 04/28/23 18:00 04/30/23 07:58 Mupirocin Oint 2 2 Gm NASAL 05/03/23 17:59 Not Given BID [facility] Protocol Naloxone HCl 0.1 mg 04/28/23 15:31 04/29/23 09:31 Naloxone 0.4 Mg/ Ml Sdv IV 0.1 mg Q2M PRN Administration Respiratory rate less than 8. Pantoprazole Sodiu m 40 mg 04/29/23 09:00 04/30/23 07:[address] 40 Mg Tablet PO 40 mg DAILY DARA Administration Polysaccharide Iro n Complex 150 mg 04/28/23 18:00 04/30/23 07:53 Iron Polysacchar leticia Complex 150 Mg Capsule PO 150 mg BIDWM DARA Administration Senna/Docusate Sod ium 2 tab 04/28/23 18:00 04/30/23 07:53 Sennosides-Docus ate Tablet PO 2 tab BID DARA Administration Tizanidine HCl 2 mg 04/28/23 15:31 04/28/23 20:23 Tizanidine 4 Mg Tablet PO 2 mg Q8H PRN Administration Pain Vitamin D 1,000 unit 04/29/23 09:00 04/30/23 07:52 Cholecalciferol (Vitamin D3) 1,000 Unit Tablet PO 1,000 unit DAILY DARA Administration Vitals/I&O/Wt Last Vital Signs Temp 97.5 F L 04/30/23 08:00 Pulse 70 04/30/23 08:00 Resp 16 04/30/23 08:00 BP 130/60 04/30/23 08:00 Pulse Ox 94 04/30/23 08:00 O2 Del Method Room Air 04/30/23 04:00 O2 Flow Rate 6 04/28/23 14:14 04/29/23 04/30/23 04/30/23 22:59 06:59 14:59 Intake Total 1130 / 1610 240 / 240 Balance 1130 / 1610 240 / 240 Physical Exam Const: COMMON NORMALS: patient oriented x3 HENMT: COMMON NORMALS: normocephalic and atraumatic HEAD & SCALP: normocephalic and atraumatic Resp: COMMON NORMALS: normal respiratory effort, No retractions, No use of accessory muscles and clear to auscultation bilaterally EFFORT & INSPECTION: Yes symmetric chest movement AUSCULTATION: clear to auscultation bilaterally Cardio: COMMON NORMALS: regular rate, regular rhythm, S1 normal heart sound present, S2 normal heart sound present, No gallops present (Cardio), No murmurs present (Cardio), No rub (Cardio) and Peripheral pulses 2+ throughout RATE: regular rate RHYTHM: regular rhythm HEART SOUNDS: S1 normal heart sound present and S2 normal heart sound present PERIPHERAL PULSES: Peripheral pulses 2+ throughout GI: COMMON NORMALS: Normal to inspection, nondistended, normoactive bowel sounds present, Soft to palpation, non-tender, No hepatosplenomegaly present and no masses AUSCULTATION: Yes normoactive bowel sounds PALPATION: Yes Soft to palpation and Yes No hepatosplenomegaly present RECTAL EXAM: deferred Extremity: COMMON NORMALS: no clubbing, cyanosis or edema and no pedal edema Neuro: COMMON NORMALS: patient oriented x3 Urinary Catheter Management: Dowell: Cath Placed During This Visit: yes, but has since been removed by the nurse Reason for Continuing Indwelling Catheter: Decision to DC Catheter Urinary Catheter Date of Insertion: 04/28/23 Urinary Catheter Time of Insertion: 11:15 Date Urinary Catheter Removed: 04/29/23 Time Urinary Catheter Discontinued: 06:15 Data 04/30/23 05:23 04/30/23 05:23 A&P Assessment and plan (1) Hypotension: (2) Syncope: (3) Thyroid nodule: Plan 67 year old female with PMH of hypotension currently admitted under orthopedic service for the managment of Primary osteoarthritis right knee s/p ?right total knee arthroplasty. Assessment : Sycope : Likely 2/2 Ac hypotension possibly 2/2 pain medication. ekg Possible sinus bradycardia with PACs, CTA Chest :No P/E Lower extremity doppler vein :Negative for DVT Monitor Orthostatic vital sign Continue gentle I.V Hydration Telemtry monitoring Ac Hypotension: Possibly 2/2 to pain medications Follow cortisol Continue gentle I.V Hydration Monitor Vitals lisinopril can be resumed once her blood pressure is at her baseline routine blood pressure which she usually runs at home. Incidental findings of thyroid nodule on CTA Chest: U/S Thyroid : Mildly suspicious 5.9 cm right thyroid nodule warrants FNA on a nonemergent basis. Mildly suspicious 1.7 cm left thyroid nodule warrants follow- up ultrasound at 1, 3, and 5 years. Follow TSH Endocrine follow up as outpatient. Attestations Medical Necessity Statement*: Per primary Coding Level of Care Code Acute Code for Chg Fwd Diagnoses Hypotension I95.9 Syncope R55 Thyroid nodule E04.1
--- NOTE | 2023-04-30 13:19 | P.DS_ITS ---
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 Flexion contracture was approximately 17 degrees. Procedure done: Right total knee arthroplasty with Afzal guidance Implants: The [employer] total knee system with a size 3 triathlon beaded cruciate retaining femur right, a triathlon titanium tibial component size beaded, a triathlon X3 tibial bearing CS insert size 3 X 11 mm and a beaded triathlon titanium asymmetric patella size 29 x 9 mm (2) Primary osteoarthritis of right knee: Status: Acute (3) Hypotension: Details from hospital stay: Dana to be secondary to oxycodone Status: Acute (4) Syncope: Status: Acute (5) Thyroid nodule: Details from hospital stay: This will require outpatient evaluation. Patient had a CTA and subsequent thyroid ultrasound. Results are listed below in the discharge summary. Status: Acute Reason for Visit Reason for Visit: 83154 M17.10 Brief History: Marifer presented for right total knee arthroplasty. She states her pain has gradually progressed over the last ten years. She states she was told she needed to have knee replacement surgery, but they refused to do her surgery secondary to her BMI over 50 at that time. She states she has lost approximately 120 pounds, and she is ready to discuss possible surgery options.? Current BMI is 33.2.? She states she had gel injections ten years ago, but they offered little relief. She states walking and taking gabapentin is her only relief. Hospital Course Hospital Course Patient presented for right total knee arthroplasty which was an uneventful operative procedure. Postoperatively, the patient was admitted to the floor, and secondary to oxycodone use, she had a near syncopal episode and low blood pressure with as well as orthostatic hypotension. The morning following surgery, the patient had a rapid response called to her room secondary to the findings of low blood pressure. In further discussion with the patient in her room as well as with her , she noted that she remembered that she had issues like this previously with oxycodone and that it did cause her blood pressure to go lower and she became weak with it. Previously, she took it for pain, but subsequent to her gastric bypass, she has had issues. We therefore switched her to a hydrocodone which worked much better for her. She did not have further episodes when she was switched over to hydrocodone. She was maintained another night for monitoring, and on the second postoperative day, she was doing very well. She was working well with physical therapy and was independent. Therefore, she was discharged to home with home care. Physical Exam Const: COMMON NORMALS: no acute distress, average body habitus, patient oriented x3 and alert GENERAL APPEARANCE: cooperative and comfortable ORIENTATION/CONSCIOUSNESS: Yes awake HENMT: COMMON NORMALS: normocephalic and atraumatic HEAD & SCALP: normocephalic and atraumatic Eye: GENERAL EYE: appearance normal, both eyes and all related structures Chest: COMMONS NORMALS: normal inspection of the chest Resp: COMMON NORMALS: normal respiratory effort EFFORT & INSPECTION: Yes able to speak in complete sentences and Yes symmetric chest movement Extremity: RIGHT LOWER EXTREMITY: Yes knee joint (OpSite remains dry and intact) Right knee: Yes inspection (OpSite is intact with no evidence of ongoing drainage. ), Yes palpation (Minimal to no tenderness.), Yes ROM (Not evaluated.) and Yes neurovascular exam (No evidence of DVT.) Neuro: COMMON NORMALS: patient oriented x3 SENSORIUM/ORIENTATION: Yes alert Psych: COMMON NORMALS: mental status grossly normal APPEARANCE: Yes grossly normal ATTITUDE: Yes calm and Yes engaged ATTENTION/CONCENTRATION: Yes attention grossly intact Skin: COMMON NORMALS: no rashes or lesions noted GENERAL SKIN EXAM: no rashes or lesions noted Urinary Catheter Management: Dowell: Cath Placed During This Visit: yes, but has since been removed by the nurse Reason for Continuing Indwelling Catheter: Decision to DC Catheter Urinary Catheter Date of Insertion: 04/28/23 Urinary Catheter Time of Insertion: 11:15 Date Urinary Catheter Removed: 04/29/23 Time Urinary Catheter Discontinued: 06:15 Discharge Data Studies Completed and Pending Completed Studies During Hospitalization Category Date Time Status CTA chest [CT angio chest PE protcl 25491] Routine Cat Scan 04/29/23 10:49 Completed XR knee RT 1-2V 82066 Urgent Exams 04/28/23 14:05 Completed US thyroid 22940 Routine Ultrasound 04/29/23 14:13 Completed US venous duplex lower extremity bilat [CV venous Ultrasound 04/29/23 10:53 [place] [id number]] Routine Radiology Impressions Knee X-Ray 04/28/23 14:05 IMPRESSION: 1. Total knee replacement in satisfactory position. Chest CTA 04/29/23 10:49 IMPRESSION: 1. No acute pulmonary embolism. 2. Mild right upper lobe tree-in-bud nodularity likely represents infectious or inflammatory bronchiolitis. 3. Heterogeneously enlarged right thyroid gland. Recommend nonemergent ultrasound. 4. Additional chronic and incidental findings as above. Thyroid Ultrasound 04/29/23 14:13 IMPRESSION: 1. Mildly suspicious 5.9 cm right thyroid nodule warrants FNA on a nonemergent basis. 2. Mildly suspicious 1.7 cm left thyroid nodule warrants follow-up ultrasound at 1, 3, and 5 years. Laboratory Results WBC 8.6 10^3/uL (4.0-10.0) 04/30/23 05:23 RBC 3.35 10^6/uL (4.1-5.3) L 04/30/23 05:23 Hgb 10.1 g/dL (11.5-15.3) L 04/30/23 05:23 Hct 31.7 % (37.0-47.0) L 04/30/23 05:23 MCV 94.6 fl (81-99) 04/30/23 05:23 MCH 30.1 pg (28.0-34.0) 04/30/23 05:23 MCHC 31.9 g/dL (30.0-36.0) 04/30/23 05:23 RDW 14.4 % (12.1-15.1) 04/30/23 05:23 Plt Count 189 10^3/cmm (130-400) 04/30/23 05:23 MPV 11.3 fL (7.4-10.4) H 04/30/23 05:23 Neut % (Auto) 72.9 % 04/30/23 05:23 Lymph % (Auto) 12.1 % 04/30/23 05:23 Dane % (Auto) 9.2 % 04/30/23 05:23 Eos % (Auto) 5.2 % 04/30/23 05:23 Baso % (Auto) 0.3 % 04/30/23 05:23 Neut # (Auto) 6.29 10^3/uL (1.8-7.7) 04/30/23 05:23 Lymph # (Auto) 1.0 10^3/uL (0.8-4.8) 04/30/23 05:23 Dane # (Auto) 0.8 10^3/uL (0.2-0.9) 04/30/23 05:23 Eos # (Auto) 0.5 10^3/uL (0.0-0.8) 04/30/23 05: Baso # (Auto) 0.0 10^3/uL (0.0-0.1) 04/30/23 05:23 Nucleated RBC % (auto) 0 % 04/30/23 05: Nucleated RBCs # 0.0 /100WBC 04/30/23 05:23 Sodium 141 mmol/L (136-145) 04/30/23 05:23 Potassium 4.2 mmol/L (3.5-5.1) 04/30/23 05:23 Chloride 109 mmol/L (98-107) H 04/30/23 05:23 Carbon Dioxide 25 mmol/L (22-29) 04/30/23 05:23 Anion Gap 11.2 (5-19) 04/30/23 05:23 BUN 16 mg/dL (8-23) 04/30/23 05:23 Creatinine 1.0 mg/dL (0.5-0.9) H 04/30/23 05:23 GFR Calculation 55.5 mL/min (90-130) L 04/30/23 05:23 Glucose 118 mg/dL (65-115) H 04/30/23 05:23 POC Glucose 89 mg/dL (70-110) 04/29/23 04:36 Calculated Osmolality 294 mOsm/kg (285-295) 04/30/23 05:23 Calcium 8.6 mg/dL (8.5-10.5) 04/30/23 05:23 TSH 1.03 uIU/mL (0.27-4.20) 04/30/23 05:23 Vitals Last Vital Signs Temp 97.4 F L 04/30/23 12:00 Pulse 80 04/30/23 12:00 Resp 18 04/30/23 12:00 BP 111/71 04/30/23 12:00 Pulse Ox 97 04/30/23 12:00 O2 Del Method Room Air 04/30/23 04:00 O2 Flow Rate 0 04/30/23 08:25 Discharge Plan Discharge Patient Disposition: Home Health Service Condition: Stable Prescriptions: New celecoxib 200 mg Capsule 200 mg PO 1XD 30 Days Qty: 30 0RF hydrocodone-acetaminophen 5-325 mg Tablet 1 - 2 tab PO Q4H PRN (Reason: Moderate Pain) 7 Days Qty: 30 0RF aspirin 325 mg Tablet,Delayed Release (Dr/Ec) 325 mg PO DAILY 30 Days Qty: 30 0RF Continued lisinopril 5 mg tablet 10 mg PO DAILY Patient Comments: Patient not sure of dose gabapentin 300 mg capsule 400 mg PO BID Patient Comments: Patient not sure of dose pantoprazole 20 mg tablet,delayed release (DR/EC) 40 mg PO DAILY cyanocobalamin (vitamin B-12) [B-12 DOTS] 500 mcg tablet 1,000 mcg PO DAILY calcium-vit [id number]-jzy-[id number] [id number] fe-qc-ziki-mcg capsule 1 cap PO DAILY tizanidine 2 mg tablet 2 mg PO Q8H PRN (Reason: Pain) cefdinir 300 mg capsule 300 mg PO Q12H Qty: 10 0RF lovastatin 20 mg tablet 20 mg PO DAILY Discharge Orders: Discharge Order (Routine); Ordered 04/30/23 Ordered By: Latasha Laguerre Other Ambulatory Orders: DME: Walker (Order) Location: None Selected Ordered By: Latasha Laguerre Referrals: Latasha Laguerre MD [Physician] - 05/11/23 8:15 am (APPOINTMENT WITH DR LAGUERRE ON MAY 18 AT 9:15) Guy Angulo [Primary Care Provider] - 05/04/23 1:20 pm Donna Mosley MD [Physician] - 06/04/23 8:00 am (PLEASE ARRIVE 15 MINUTES PRIOR TO APPOINTMENT. ) Discharge Diet: Advance as tolerated and Usual diet Discharge Activity: Increase activity as tolerated, Limit activity as instructed, Use walker/crutches as instructed and As per PT/OT instructions Patient Instructions: Hydrocodone/Acetaminophen (By mouth), Aspirin (By mouth), Celecoxib (By mouth), How to Choose and Use a Walker (GEN), Knee Replacement (GEN), Joint Replacement Stoplight, Opioid Safety Activity Restrictions/Additional Instructions: Range of motion and strengthening per physical therapy. Gait training per physical therapy. Advance activities as instructed by physical therapy. You may shower and get your leg wet, but do not soak in a tub. Keep clear plastic dressing over your knee until it peels off on its own. It is likely we will be taking it off here in the office. Follow-up with your primary care regarding thyroid findings on CT scan. Discharge Attestations 2 Time Spent in Discharge Care*: greater than 30 min Specific Discharge Activities: educating patient, documenting/other paperwork and evaluating patient/reviewing data Status at Discharge: Cognitive status at discharge: cognitively intact , Behavioral status at discharge: cooperative , Quality Metrics Clinical Quality Measures [ No reported AMI, CVA or VTE this stay] Coding Level of Care Code Acute Code for Chg Fwd Diagnoses Status post total right knee replacement not using cement Z96.651 Primary osteoarthritis of right knee M17.11 Hypotension I95.9 Syncope R55 Thyroid nodule E04.1
--- NOTE | 2023-04-30 15:00 | PC.NURSE ---
IV removed intact. Patient tolerated well. Patient is A&Ox3. Respirations even and non-labored on room air. Reviewed patient's discharge with patient and at bedside. Patient and verbalized understanding of follow up appointments and he to take medications. Patient wheel chaired to private car.
--- NOTE | 2023-04-30 16:48 | PC.OT ---
Attempted to see patient for treatment this afternoon. Patient declined as she was fatigued from seeing physical therapy twice today, and is planning to discharge soon. She did not want to be too tired when she went home.
== END 2023-04-30 15:00 | disposition home health service (06) ==
LOC: MEDSURG 16:29
PROVIDERS: Internal Medicine; Admitting Provider Specialist; PCP Family Medicine; Visit Provider Specialist
PROC: 8E0Y0CZ Robotic Assisted Procedure of Lower Extremity, Open Approach (ICD-10-PCS; CPT 27447; principal; 2023-04-28 10:10)
DX: M17.11 Unilateral primary osteoarthritis, right knee (principal); E04.1 Nontoxic single thyroid nodule; K21.9 Gastro-esophageal reflux disease without esophagitis; E78.5 Hyperlipidemia, unspecified; I10 Essential (primary) hypertension; I95.2 Hypotension due to drugs; T40.2X5A Adverse effect of other opioids, initial encounter; Y92.239 Unspecified place in hospital as the place of occurrence of the external cause
CPT/HCPCS: 20985; 27447; 36415; 36416; 51702; 71275; 73560; 76536; 80048; 82962; 84443; 85014; 85018; 85025; 93005; 93970; 97110; 97116; 97161; 97166; 97530; 97535; C1776; C9290; G0378; J0131; J0690; J2250; J2310; J2371; J2704; J2795; J3010; J3370; J3490; J7030; J7040; J7050; Q9967

== ENCOUNTER → 2023-05-18 09:07 | Outpatient (BNVA) | payer MEDICARE, SELFPAY | PROVIDERS: PCP Family Medicine; Visit Provider Specialist | DX: Z96.651 Presence of right artificial knee joint (principal) | CPT/HCPCS: 73560; 73565; 99024 ==

== ENCOUNTER 2023-05-25 16:42 | Outpatient (CLI) | payer MEDICARE, SELFPAY | END 2023-05-25 16:43 | disposition home or self-care (01) | LOC: SPT 16:42 | PROVIDERS: PCP Family Medicine; Visit Provider Specialist | DX: Z46.89 Encounter for fitting and adjustment of other specified devices (principal); Z96.651 Presence of right artificial knee joint; Z47.89 Encounter for other orthopedic aftercare; S76.101A Unspecified injury of right quadriceps muscle, fascia and tendon, initial encounter; X58.XXXA Exposure to other specified factors, initial encounter | CPT/HCPCS: 97760; 99024; L1812 ==

== ENCOUNTER 2023-05-29 15:03 | Outpatient (CLI) | payer MEDICARE, SELFPAY ==
--- NOTE | 2023-05-29 15:00 | US_ITS ---
WS: [id number] ULTRASOUND SOFT TISSUE RIGHT KNEE INDICATION: Quadriceps injury. Right TKA. TECHNIQUE: Ultrasound soft tissue area of concern FINDINGS: Ultrasound soft tissue area of concern. Diffuse heterogeneous echotexture involving the rig ht quadriceps tendon with a hypoechoic appearance. This is asymmetric compared to the normal left ten don. This is compatible with diffuse tendinopathy and possibly edema considering recent injury. High-grade complete appearing tear in the distal quadriceps tendon just above the patellar insertion. Tendon is visualized on both sides of the cleft. Mild widening measuring 6 mm. IMPRESSION: High-grade complete or near complete tear of the distal right quadriceps tendon with wide donita measuring 5.8 mm
== END 2023-05-29 15:04 | disposition home or self-care (01) ==
PROVIDERS: PCP Family Medicine; Visit Provider Specialist
DX: S76.111A Strain of right quadriceps muscle, fascia and tendon, initial encounter (principal); X58.XXXA Exposure to other specified factors, initial encounter; Z96.651 Presence of right artificial knee joint
CPT/HCPCS: 76882

== ENCOUNTER → 2023-06-08 10:19 | Outpatient (BNVA) | payer MEDICARE, SELFPAY | PROVIDERS: PCP Family Medicine; Visit Provider Specialist | DX: S76.111A Strain of right quadriceps muscle, fascia and tendon, initial encounter; Z96.651 Presence of right artificial knee joint; X58.XXXA Exposure to other specified factors, initial encounter; Z46.89 Encounter for fitting and adjustment of other specified devices; M25.561 Pain in right knee | CPT/HCPCS: 73560; 73565; 97760; 99214; L1830 ==

== ENCOUNTER 2023-06-08 16:04 | Outpatient (CLI) | payer MEDICARE, SELFPAY | END 2023-06-08 16:05 | disposition home or self-care (01) | LOC: SPT 16:06 | PROVIDERS: PCP Family Medicine; Visit Provider Specialist | DX: Z46.89 Encounter for fitting and adjustment of other specified devices (principal); M25.561 Pain in right knee | CPT/HCPCS: 97760; 99214; L1830 ==

== ENCOUNTER 2023-06-09 09:07 | Observation (INO) | payer MEDICARE, SELFPAY ==
[2023-06-08 12:28] VITALS: BMI 32.8
[2023-06-09] VITALS (24 sets, daily range): BP systolic 111–177; BP diastolic 66–99; PULSE 75–99; RESP 12–20; TEMP 36.3–37.1; O2SAT 92–100
[2023-06-09] MEDS: sodium chloride 0.9% 1,000 ML 30 ML IV (06:38)
[2023-06-09] MEDS: acetaminophen 1,000 MG/100 ML PIGGYBACK 400 MG IV (06:39)
[2023-06-09] MEDS: gabapentin 300 mg Capsule PO (06:40)
[2023-06-09] MEDS: CELEcoxib 200 mg Capsule 400 MG PO (06:40)
--- NOTE | 2023-06-09 06:47 | ANES.PREANE2 ---
Pre-Anesthetic Assessment Height/Weight: Height 1.52 m Weight 76.204 kg O2 Del Method Room Air 06/09/23 06:16 Operation Date: 06/09/23 07:00 Proposed Procedures p RIGHT KNEE QUADRICEPS TENDON REPAIR 76558, S76.119A(Right) - Latasha Laguerre MD Familial anesthetic complications: None Was Beta Natalie taken within 24 hours: N/A Was Clonidine taken within 24 hours: N/A Last intake: Intake Last Liquid Date 06/08/23 Last Liquid Time 23:00 Last Solid Date 06/08/23 Last Solid Time 23:00 Social No alcohol and No tobacco Exam alert, oriented x 3, clear to auscultation bilaterally and regular rate & rhythm Airway Mallampati: Class II Dentition: full CV/HEM Hypertension GI Gastroesophageal Reflux Disease Anesthetic Plan ASA status: 2 Anesthesia: General Risk of > 500 ml blood loss (7ml/kg in children): No Medications/Allergies Home Medications Medication Instructions Recorded Confirmed Last Taken Type gabapentin 300 mg capsule 400 mg PO BID 10/24/19 06/09/23 06/08/23 History lisinopril 5 mg tablet 5 mg PO DAILY 10/24/19 06/09/23 06/08/23 History calcium-vit V0-[id number] 500 1 cap PO BID 02/07/20 06/09/23 06/08/23 History mg-40 mg-200 unit-200 mcg capsule cyanocobalamin (vitamin B-12) 500 1,000 mcg PO DAILY 02/07/20 06/09/23 06/08/23 History mcg tablet (B-12 DOTS) pantoprazole 20 mg tablet,delayed 40 mg PO DAILY 02/07/20 06/09/23 06/08/23 History release tizanidine 2 mg tablet 2 mg PO BEDTIME 06/11/22 06/09/23 06/08/23 History lovastatin 20 mg tablet 20 mg PO BEDTIME 04/24/23 06/09/23 06/08/23 History hinged knee brace #1 ea 05/25/23 06/08/23 Unknown Rx tramadol 50 mg tablet 50 mg PO Q8H PRN Pain 06/08/23 06/09/23 06/07/23 History Allergies Allergy/AdvReac Type Severity Reaction Status Date / Time oxycodone Allergy ADR/ALGY-Hy Verified 06/09/23 06:10 potension Current Medications Generic Name Dose Route Start Last Admin Trade Name Eduard PRN Reason Stop Dose Admin Sodium Chloride 1,000 mls @ 30 mls/hr 06/09/23 06:30 06/09/23 06:38 Sodium Chloride 0.9% IV 06/10/23 06:29 30 mls/hr .Q24H DARA Administration PFSH Anesthesia Medical History Arthritis Colon polyp Dyslipidemia Gastric ulcer Hypertension Obesity Surgical History History of cholecystectomy History of colonoscopy with polypectomy History of esophagogastroduodenoscopy (EGD) History of gastric surgery History of tubal ligation (~1988) [facility]. Performed by Dr. Ellis S/P laparoscopic sleeve gastrectomy Family History Mother Hypertension Diabetes Hyperlipidemia Bladder cancer Sister Hypertension Hyperlipidemia Thyroid condition Breast cancer, Onset Age: 50 Unknown No problems noted. Denies family history of Anesthesia complication Bleeding disorder Social History Smoking and tobacco status: never smoked Alcohol intake: never Substance/Drug Use: never Lives independently: Yes Household members: spouse Current occupational status: retired Additional social history: Poorly balanced diet Data Anesthesia Cardiac Studies: No Data to Display
--- NOTE | 2023-06-09 06:51 | W.PM.OPSUD ---
Surgery/Procedure H&P Update DATE OF PROCEDURE: June 09, 2023 DATE H&P PERFORMED: 06/08/23 H&P UPDATE INFORMATION: I have reviewed H&P completed within last 30 days, I have examined patient prior to procedure, No changes to prior documentation and H&P is in [facility] EMR on date indicated PLANNED PROCEDURE: Operation Date: 06/09/23 07:00 Proposed Procedures p RIGHT KNEE QUADRICEPS TENDON REPAIR 48634, S76.119A(Right) - Latasha Laguerre MD Related Problem List Diagnoses (1) Quadriceps tendon rupture: (2) Status post total right knee replacement not using cement:
[2023-06-09] MEDS: ceFAZolin 2,000 MG in sodium chloride 0.9% (plus) 50 ML 100 MG IV ×3 (07:00→23:50)
[2023-06-09 07:04] LABS: Add Urine Microscopic? NO; Charge for UA Resulting for Rev
[2023-06-09 07:15] LABS: Basophils # 0.1 10^3/uL (0.0-0.1); Basophils % 1.4 %; Eosinophils # 0.5 10^3/uL (0.0-0.8); Eosinophils % 8.1 %; Hematocrit 35.8 % (36-47); Lymphocytes # 2.6 10^3/uL (0.8-4.8); Lymphocytes % 40.2 %; Mean Corpuscular HGB Conc 32.4 g/dL (30-55); Mean Corpuscular Hemoglobin 31.4 pg (27-33); Mean Corpuscular Volume 96.8 fl (85-98); Mean Platelet Volume 11.8 fL (7.4-10.4); Monocytes # 0.6 10^3/uL (0.2-0.9); Monocytes % 8.7 %; Neutrophils # 2.71 10^3/uL (1.8-7.7); Neutrophils % 41.3 %; Nucleated Red Blood Cells % 0 %; Platelet Count 206 10^3/cmm (157-399); Red Cell Distribution Width 13.4 % (12.1-15.1); White Blood Count 6.56 10^3/uL (3.29-11.43)
[2023-06-09 07:20] LABS: Bilirubin Urine Neg (Negative); Blood Urine Neg (Negative); Glucose Urine UA Norm (Normal); Ketones Urine Negative (Negative); Leukocyte Esterase Urine Negative (Negative); Nitrate Urine Negative (Negative); Protein Urine Neg (Negative); Urine Appearance Clear (CLEAR); Urine Color Yellow (Yellow); Urobilinogen Urine Norm (Negative); pH Urine 5 (5-7)
[2023-06-09 07:29] LABS: Alanine Aminotransferase 9 U/L (0-33); Albumin Level 3.8 g/dL (3.5-5.2); Alkaline Phosphatase 62 U/L (35-105); Anion Gap 11.1 (5-19); Aspartate Amino Transferase 15 U/L (0-32); Blood Urea Nitrogen 27 mg/dL (8-23); Calcium 9.3 mg/dL (8.5-10.5); Carbon Dioxide 27 mmol/L (22-29); Chloride 106 mmol/L (98-107); Globulin 2.6 g/dL (1.3-4.6); Glomerular Filtration Rate 55.3 mL/min (90-130); Glucose 90 mg/dL (65-115); Osmolality Calculated 295 mOsm/kg (285-295); Potassium 4.1 mmol/L (3.5-5.1); Sodium 140 mmol/L (136-145); Total Bilirubin 0.3 mg/dL (0.15-1.2); Total Protein 6.4 g/dL (6.6-8.7)
[2023-06-09] MEDS: ceFAZolin 1,000 mg SDV 1000 MG IRRIGATION (07:31)
[2023-06-09] MEDS: vancomycin 1,000 MG SDV 1000 MG XX (07:42)
[2023-06-09] MEDS: fentaNYL 50 mcg/mL INJ 2mL IVP ×2 (08:24→08:30)
--- NOTE | 2023-06-09 08:36 | PM.OP ---
Operative Report Date of procedure: June 09, 2023 Pre-op diagnosis: Quadriceps tendon rupture right knee Post-op diagnosis: Quadriceps tendon rupture right knee Post-op findings: Quadriceps tendon rupture through the suture line of the total knee arthroplasty, median parapatellar arthrotomy Procedure done: Quadriceps tendon repair right knee Specimens removed/disposition: None Surgeon: Latasha Laguerre [employer] Laboratory Technician: [facility] operating room technicians Anesthesia: General (Intubated, ASA 2) Estimated blood loss (mL): 5 Tourniquet time (min): 35 (At 250 mmHg) IV fluids (mL): 600 Urine output (mL): 0 (No Dowell) Complications: None Findings: Rupture of quadriceps tendon through the suture line with evidence of at least 1 single broken suture. The tear was right along the repair. Brief History: Marifer presented for total knee arthroplasty on April 28, 2023. The patient did well following this, however, she first tripped on a step, she then had physical therapy where she felt increased pain in her knee and a popping type sensation. After that, she attempted to bowl, and she was unable to weight-bear following the bowling incident. She was seen and evaluated in the office. Ultrasound was ordered, and the ultrasound demonstrated a complete or near complete quadriceps tendon rupture. The patient was brought to the operating room today. Fortunately, the patient was found to have a partial tear which was actually disruption of the suture line. Procedure: The patient was brought to the operating theater, and after undergoing general anesthesia, intubated, ASA 2, the right lower extremity was prepped with Dura-Prep and draped in usual fashion following placement of a tourniquet high on the leg. The leg was then draped free.? Tourniquet was elevated following exsanguination. Total tourniquet time was 35 minutes at 250 mmHg.? A surgical pause was performed, and at the time of the surgical pause, we confirmed the site and side of surgery. Additionally, we confirmed the appropriate and timely administration of preoperative antibiotics, Ancef 2 g.? The availability of equipment was confirmed, and the patient's identity was verbalized as well. Following the surgical pause, the patient's previous incision was entered in its proximal half. It was extended more proximally to allow access to the quadriceps tendon. Subcutaneous tissues were incised as well using electrocautery, and I was then able to place my finger directly into the joint. Evaluation of the area demonstrated that there was quadriceps dehiscence along the suture line from proximal to the arthrotomy along the suture line to the upper half of the patella. This area was freshened using a combination of rongeur and scalpel. After the area was freshened, the knee was copiously irrigated with normal saline containing Ancef. Following this, attention was directed to closure of the freshened quadriceps tendon tear. Closure was accomplished with a combination of #1 PDS and #1 strata fix. The #1 PDS was used in an interrupted fashion. We then placed strata fix from proximal to distal and an additional strata fix from distal to proximal. Once this was accomplished. Vancomycin powder was placed in the wound following irrigation. Subcutaneous tissues were closed using 2-0 Monocryl. This was followed by skin annabel. We then placed Dermabond Prineo and Silverlon dressing followed by an Jeremi wrap. The patient was placed in the knee immobilizer which had been previously fitted to her. She was then returned to the recovery room in a satisfactory condition where she will be discharged to the floor for postoperative pain management under observation status. 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
[2023-06-09] MEDS: HYDROmorphone 1 mg/mL INJ 1 mL 0.5 MG IVP ×3 (08:38→09:00)
--- NOTE | 2023-06-09 09:20 | ANE.PACU2 ---
Inpatient post-anesthesia follow up: Airway intact: Yes Vital signs: Temperature 98.0 F Pulse Rate 86 Respiratory Rate 16 Blood Pressure 122/73 Pulse Oximetry 100 Oxygen Delivery Me thod Nasal Cannula Oxygen Flow Rate 6 Fraction of Inspir ed Oxygen Hydration adequate: Yes Nausea and vomiting: No Pain level: 1 Mental status: Baseline
[2023-06-09] MEDS: ondansetron 2 mg/ML SDV 2 mL 4 MG IVP (15:12)
[2023-06-09] MEDS: HYDROcodone-acetaminophen 5-325 mg Tablet PO ×2 (15:15→20:21)
[2023-06-09] MEDS: lanolin oint 7 gm 1 APPLIC TOPICAL (15:31)
[2023-06-09] MEDS: CELEcoxib 200 mg Capsule PO (17:55)
[2023-06-09] MEDS: docusate sodium 100 mg Capsule PO (17:56)
[2023-06-09] MEDS: gabapentin 400 mg Capsule PO (17:56)
[2023-06-09] MEDS: atorvastatin 40 mg Tablet 20 MG PO (20:15)
[2023-06-09] MEDS: tizanidine 4 mg Tablet 2 MG PO (20:15)
[2023-06-09] MEDS: TRAMadol 50 mg Tablet PO (23:52)
[2023-06-10] VITALS: BP 115/66; PULSE 84; RESP 18; TEMP 37; O2SAT 98
[2023-06-10] MEDS: HYDROcodone-acetaminophen 5-325 mg Tablet PO ×3 (02:29→11:57)
[2023-06-10 05:00] VITALS: BP 122/74; PULSE 67; RESP 18; TEMP 36.4; O2SAT 96
[2023-06-10] MEDS: ceFAZolin 2,000 MG in sodium chloride 0.9% (plus) 50 ML 100 MG IV (06:32)
[2023-06-10 07:24] VITALS: BP 138/65; PULSE 66; RESP 18; TEMP 36.4; O2SAT 99
[2023-06-10] MEDS: aspirin 325 mg EC Tablet PO (08:34)
[2023-06-10] MEDS: CELEcoxib 200 mg Capsule PO (08:34)
[2023-06-10] MEDS: gabapentin 400 mg Capsule PO (08:35)
[2023-06-10] MEDS: ondansetron 2 mg/ML SDV 2 mL 4 MG IVP (08:35)
[2023-06-10] MEDS: docusate sodium 100 mg Capsule PO (08:35)
[2023-06-10] MEDS: lisinopril 5 mg Tablet PO (08:35)
[2023-06-10 11:37] VITALS: BP 121/69; PULSE 65; RESP 20; TEMP 36.4; O2SAT 99
--- NOTE | 2023-06-10 12:20 | P.DS_ITS ---
Discharge Providers Date of Admission: 06/09/23 09:07 Date of Discharge: June 10, 2023 Attending Provider at Admission: Latasha Laguerre MD Attending Provider at Discharge: Latasha Laguerre MD Primary Care Provider: Guy Angulo Diagnoses at Discharge Discharge Diagnosis (1) Quadriceps tendon rupture: Status: Acute Qualifiers: Encounter type: initial encounter Laterality: right Qualified Code(s): S76.111A - Strain of right quadriceps muscle, fascia and tendon, initial encounter (2) Status post total right knee replacement not using cement: Status: Acute Permanent problem details: Date of procedure: April 28, 2023 Diagnosis: Primary osteoarthritis right knee with flexion contracture and varus deformity Post-op findings: Large osteophytes with significant degenerative osteoarthritic change including varus deformity and flexion contracture. Flexion contracture was approximately 17 degrees. Procedure done: Right total knee arthroplasty with Fazal guidance Implants: [employer] total knee system with a size 3 triathlon beaded cruciate retaining femur right, a triathlon titanium tibial component size beaded, a triathlon X3 tibial bearing CS insert size 3 X 11 mm and a beaded triathlon titanium asymmetric patella size 29 x 9 mm Reason for Visit Reason for Visit: Brief History: Marifer presented for total knee arthroplasty on April 28, 2023.? The patient did well following this, however, she first tripped on a step, she then had physical therapy where she felt increased pain in her knee and a popping type sensation.? After that, she attempted to bowl, and she was unable to weight-bear following the bowling incident.? She was seen and evaluated in the office.? Ultrasound was ordered, and the ultrasound demonstrated a complete or near complete quadriceps tendon rupture.? The patient was brought to the operating room today.? Fortun oscarly, the patient was found to have a partial tear which was actually disruption of the suture line. Hospital Course Hospital Course Patient was diagnosed with a quadriceps tendon rupture/dehiscence, and she was brought to the hospital for repair of her quadriceps tendon. This was a same- day surgery, and the patient was brought into the hospital overnight under observation status. On the first day postoperatively, the patient was independent. She was able to control her pain with oral analgesics. Therefore, as the patient was felt safe for discharge to home, plans were made for her discharge home. She is in a knee immobilizer and will remain so until she is seen in the office next week. Physical Exam Const: COMMON NORMALS: no acute distress, average body habitus, patient oriented x3 and alert GENERAL APPEARANCE: cooperative and comfortable ORIENTATION/CONSCIOUSNESS: Yes awake HENMT: COMMON NORMALS: normocephalic and atraumatic HEAD & SCALP: normocephalic and atraumatic Eye: GENERAL EYE: appearance normal, both eyes and all related structures Chest: COMMONS NORMALS: normal inspection of the chest Resp: COMMON NORMALS: normal respiratory effort EFFORT & INSPECTION: Yes able to speak in complete sentences and Yes symmetric chest movement Extremity: RIGHT LOWER EXTREMITY: Yes knee joint Right knee: Yes inspection (Minimal swelling distally), Yes palpation (Tender), Yes ROM (Not evaluated secondary to tendon repair) and Yes neurovascular exam (Intact distally with no evidence of DVT) Neuro: COMMON NORMALS: patient oriented x3 SENSORIUM/ORIENTATION: Yes alert Psych: COMMON NORMALS: mental status grossly normal APPEARANCE: Yes grossly normal ATTITUDE: Yes calm and Yes engaged ATTENTION/CONCENTRATION: Yes attention grossly intact Skin: COMMON NORMALS: no rashes or lesions noted GENERAL SKIN EXAM: no rashes or lesions noted Discharge Data Studies Completed and Pending Laboratory Results WBC 6.56 10^3/uL (3.29-11.43) 06/09/23 06:32 RBC 3.70 10^6/uL (3.85-5.65) L 06/09/23 06:32 Hgb 11.60 g/dL (11.27-16.99) 06/09/23 06:32 Hct 35.8 % (36-47) L 06/09/23 06:32 MCV 96.8 fl (85-98) 06/09/23 06:32 MCH 31.4 pg (27-33) 06/09/23 06:32 MCHC 32.4 g/dL (30-55) 06/09/23 06:32 RDW 13.4 % (12.1-15.1) 06/09/23 06:32 Plt Count 206 10^3/cmm (157-399) 06/09/23 06:32 MPV 11.8 fL (7.4-10.4) H 06/09/23 06:32 Neut % (Auto) 41.3 % 06/09/23 06:32 Lymph % (Auto) 40.2 % 06/09/23 06:32 Davison % (Auto) 8.7 % 06/09/23 06:32 Eos % (Auto) 8.1 % 06/09/23 06:32 Baso % (Auto) 1.4 % 06/09/23 06:32 Neut # (Auto) 2.71 10^3/uL (1.8-7.7) 06/09/23 06:32 Lymph # (Auto) 2.6 10^3/uL (0.8-4.8) 06/09/23 06:32 Davison # (Auto) 0.6 10^3/uL (0.2-0.9) 06/09/23 06:32 Eos # (Auto) 0.5 10^3/uL (0.0-0.8) 06/09/23 06:32 Baso # (Auto) 0.1 10^3/uL (0.0-0.1) 06/09/23 06:32 Nucleated RBC % (auto) 0 % 06/09/23 06:32 Nucleated RBCs # 0.0 /100WBC 06/09/23 06:32 Sodium 140 mmol/L (136-145) 06/09/23 06:50 Potassium 4.1 mmol/L (3.5-5.1) 06/09/23 06:50 Chloride 106 mmol/L (98-107) 06/09/23 06:50 Carbon Dioxide 27 mmol/L (22-29) 06/09/23 06:50 Anion Gap 11.1 (5-19) 06/09/23 06:50 BUN 27 mg/dL (8-23) H 06/09/23 06:50 Creatinine 1.0 mg/dL (0.5-0.9) H 06/09/23 06:50 GFR Calculation 55.3 mL/min (90-130) L 06/09/23 06:50 Glucose 90 mg/dL (65-115) 06/09/23 06:50 Calculated Osmolality 295 mOsm/kg (285-295) 06/09/23 06:50 Calcium 9.3 mg/dL (8.5-10.5) 06/09/23 06:50 Total Bilirubin 0.3 mg/dL (0.15-1.2) 06/09/23 06:50 AST 15 U/L (0-32) 06/09/23 06:50 ALT 9 U/L (0-33) 06/09/23 06:50 Alkaline Phosphatase 62 U/L (35-105) 06/09/23 06:50 Total Protein 6.4 g/dL (6.6-8.7) L 06/09/23 06:50 Albumin 3.8 g/dL (3.5-5.2) 06/09/23 06:50 Globulin 2.6 g/dL (1.3-4.6) 06/09/23 06:50 Urine Color Yellow (Yellow) 06/09/23 06:04 Urine Appearance Clear (CLEAR) 06/09/23 06:04 Urine pH 5 (5-7) 06/09/23 06:04 Ur Specific Jensen 1.020 (1.005-1.030) 06/09/23 06:04 Urine Protein Neg (Negative) 06/09/23 06:04 Urine Glucose (UA) Norm (Normal) 06/09/23 06:04 Urine Ketones Negative (Negative) 06/09/23 06:04 Urine Blood Neg (Negative) 06/09/23 06:04 Urine Nitrate Negative (Negative) 06/09/23 06:04 Urine Bilirubin Neg (Negative) 06/09/23 06:04 Urine Urobilinogen Norm mg/dL (Negative) 06/09/23 06:04 Ur Leukocyte Esterase Negative (Negative) 06/09/23 06:04 Vitals Last Vital Signs Temp 97.5 F L 06/10/23 11:37 Pulse 65 06/10/23 11:37 Resp 20 H 06/10/23 11:37 BP 121/69 06/10/23 11:37 Pulse Ox 99 06/10/23 11:37 O2 Del Method Room Air 06/10/23 11:37 O2 Flow Rate 6 06/09/23 08:20 Discharge Plan Discharge Patient Disposition: Home Health Service Condition: Stable Prescriptions: New hydrocodone-acetaminophen 5-325 mg tablet 1 tab PO Q4H PRN (Reason: pain) 7 Days Qty: 30 0RF Continued lisinopril 5 mg tablet 5 mg PO DAILY Patient Comments: Patient not sure of dose gabapentin 300 mg capsule 400 mg PO BID Patient Comments: Patient not sure of dose pantoprazole 20 mg tablet,delayed release (DR/EC) 40 mg PO DAILY cyanocobalamin (vitamin B-12) [B-12 DOTS] 500 mcg tablet 1,000 mcg PO DAILY calcium-vit [id number] capsule 1 cap PO BID tizanidine 2 mg tablet 2 mg PO BEDTIME lovastatin 20 mg tablet 20 mg PO BEDTIME (DME) hinged knee brace See Rx Instructions .Route .MEDSUPPLY Qty: 1 0RF Rx Instructions: As directed tramadol 50 mg Tablet 50 mg PO Q8H PRN (Reason: Pain) Discharge Orders: Discharge Order (Routine); Ordered 06/10/23 Ordered By: Latasha Laguerre Referrals: [facility] ([facility]) [Outside] Latasha Laguerre MD [Physician] - 06/24/23 9:00 am Shawn Chang FNP [Physician Licensed Certified Orthotist] - 06/17/23 9:15 am Discharge Diet: Advance as tolerated, Usual diet and As Directed Discharge Activity: Limit activity as instructed, Use walker/crutches as instructed and As per PT/OT instructions Patient Instructions: Hydrocodone/Acetaminophen (By mouth), Knee Immobilizer (GEN), Opioid Safety, Post Anesthesia Care, Quadriceps Tendon Rupture Activity Restrictions/Additional Instructions: Ice and elevation to right lower extremity. Wear knee immobilizer for now. You may remove it to shower. Maintain dressing until you are seen in the office. Discharge Attestations Time Spent in Discharge Care*: greater than 30 min Specific Discharge Activities: educating patient, documenting/other paperwork and evaluating patient/reviewing data Status at Discharge: Cognitive status at discharge: cognitively intact , Behavioral status at discharge: cooperative , Quality Metrics Clinical Quality Measures [ No reported AMI, CVA or VTE this stay] Coding Level of Care Code Acute Code for Chg Fwd Diagnoses Quadriceps tendon rupture S76.111A Encounter type: initial encounter Laterality: right Status post total right knee replacement not using cement Z96.651
[2023-06-10 14:19] VITALS: BP 121/69; PULSE 65; RESP 20; TEMP 36.4; O2SAT 99
== END 2023-06-10 14:21 | disposition home health service (06) ==
LOC: MEDSURG 09:07
PROVIDERS: Admitting Provider Specialist; PCP Family Medicine; Visit Provider Specialist
PROC: (CPT 27385; principal; 2023-06-09 07:00)
DX: S76.111A Strain of right quadriceps muscle, fascia and tendon, initial encounter (principal); X58.XXXA Exposure to other specified factors, initial encounter; I10 Essential (primary) hypertension; K21.9 Gastro-esophageal reflux disease without esophagitis; E78.5 Hyperlipidemia, unspecified
CPT/HCPCS: 27385; 36415; 80053; 81003; 85025; 97161; 97165; 97530; G0378; J0131; J0690; J1100; J1170; J2371; J2405; J2704; J3010; J3370; J3490; J7030

== ENCOUNTER → 2023-06-17 10:17 | Outpatient (BNVA) | payer MEDICARE, SELFPAY | PROVIDERS: PCP Family Medicine; Visit Provider Nurse Practitioner Family | DX: Z48.89 Encounter for other specified surgical aftercare (principal) | CPT/HCPCS: 99024 ==

== ENCOUNTER → 2023-06-24 08:57 | Outpatient (BNVA) | payer MEDICARE, SELFPAY | PROVIDERS: PCP Family Medicine; Visit Provider Nurse Practitioner Family | DX: S76.111A Strain of right quadriceps muscle, fascia and tendon, initial encounter (principal); Z48.89 Encounter for other specified surgical aftercare; X58.XXXA Exposure to other specified factors, initial encounter | CPT/HCPCS: 99024; 99213 ==

== ENCOUNTER 2023-06-24 10:53 | Outpatient (CLI) | payer MEDICARE, SELFPAY | END 2023-06-24 10:54 | disposition home or self-care (01) | LOC: SPT 10:54 | PROVIDERS: PCP Family Medicine; Visit Provider Nurse Practitioner Family | DX: Z46.89 Encounter for fitting and adjustment of other specified devices (principal); S76.119D Strain of unspecified quadriceps muscle, fascia and tendon, subsequent encounter; X58.XXXD Exposure to other specified factors, subsequent encounter | CPT/HCPCS: 97760; L1832 ==

== ENCOUNTER → 2023-07-08 12:48 | Outpatient (BNVA) | payer MEDICARE, SELFPAY | PROVIDERS: PCP Family Medicine; Visit Provider Specialist | DX: S76.111D Strain of right quadriceps muscle, fascia and tendon, subsequent encounter (principal); Z96.651 Presence of right artificial knee joint; X58.XXXD Exposure to other specified factors, subsequent encounter | CPT/HCPCS: 99024 ==

== ENCOUNTER 2023-08-05 13:14 | Outpatient (CLI) | payer MEDICARE, SELFPAY | END 2023-08-05 13:15 | disposition home or self-care (01) | LOC: RAD 13:16 | PROVIDERS: PCP Family Medicine; Visit Provider Specialist | DX: S76.111D Strain of right quadriceps muscle, fascia and tendon, subsequent encounter (principal); X58.XXXD Exposure to other specified factors, subsequent encounter; Z96.651 Presence of right artificial knee joint | CPT/HCPCS: 99024 ==

== ENCOUNTER → 2023-09-23 13:38 | Outpatient (BNVA) | payer MEDICARE, SELFPAY | PROVIDERS: PCP Family Medicine; Visit Provider Specialist | DX: Z96.651 Presence of right artificial knee joint (principal); M17.11 Unilateral primary osteoarthritis, right knee; S76.111D Strain of right quadriceps muscle, fascia and tendon, subsequent encounter; X58.XXXD Exposure to other specified factors, subsequent encounter | CPT/HCPCS: 73560; 73565; 99213 ==